=== PATIENT | male | born 1940 | race Caucasian/White ===

== ENCOUNTER 2017-05-31 17:48 | Inpatient (IN) ==
[2017-05-31 18:31] LABS: Basophils % 0.7 %; Eosinophils % 2.2 %; Hematocrit 32.5 % (37.5-50.1); Hemoglobin 10.7 g/dL (12.9-16.9); Mean Corpuscular HGB Conc 32.9 g/dL (31.6-35.5); Nucleated Red Blood Cells 0.5 /100 WBC (0)
[2017-05-31 18:33] LABS: Basophils # 0.1 K/mcL (0.0-0.2); Eosinophils # 0.2 K/mcL (0.0-0.6); Immature Granulocytes % 4.8 % (0-4); Immature Platelets 8.6 % (1.1-6.1); Lymphocytes # 0.9 K/mcL (0.6-4.6); Lymphocytes % 12.3 %; Mean Corpuscular Hemoglobin 33.1 pg (28.0-33.3); Mean Corpuscular Volume 100.6 fL (83.0-100.0); Mean Platelet Volume 10.8 fL (9.4-12.4); Monocytes # 0.6 K/mcL (0.0-1.3); Monocytes % 8.7 %; Neutrophils # 5.2 K/mcL (1.6-8.9); Red Blood Count 3.23 M/mcL (4.19-5.50); Red Cell Distribution Width 14.4 % (11.5-14.5); Segmented Neutrophils % 71.3 %
--- NOTE | 2017-05-31 18:42 | Emergency Department Note ---
Disposition Clinical Impression: Community acquired pneumonia, Failure of outpatient treatment Disposition: Home, Self-Care Condition: Fair General Adult HPI - General Chief complaint: ED Shortness of Breath/Dyspnea Stated complaint: GEE Time Seen by Provider: 05/31/17 18:36 Source: patient Limitations: no limitations - History of Present Illness Pain Scale: 0 - Related Data Home Medications Medication Instructions Recorded Confirmed Abiraterone Acetate [Zytiga] 1,000 mg PO DAILY 05/31/17 05/31/17 Albuterol Sulfate [Ventolin Hfa] 2 puff IH Q4H PRN 05/31/17 05/31/17 Carvedilol [Coreg] 6.25 mg PO DAILY 05/31/17 05/31/17 levoFLOXacin [Levofloxacin] 500 mg PO DAILY 05/31/17 05/31/17 predniSONE [PredniSONE] 40 mg PO DAILY 05/31/17 05/31/17 Allergies Allergy/AdvReac Type Severity Reaction Status Date / Time Penicillins Allergy See Verified 09/03/15 20:22 Comments Past Medical History - Past Medical History Medical history: Reports: cancer, hypertension, valvular heart disease Psychiatric history: Reports: no psych history - Social History Smoking Status: Former smoker Smokeless Tobacco Status: No Alcohol use: Reports: none Drug use: Reports: none Physical Exam - General Limitations: no limitations General appearance: alert, in no apparent distress Course Vital Signs Temperature 97.6 F 05/31/17 17:52 Pulse Rate 98 05/31/17 17:52 Respiratory Rate 16 05/31/17 17:52 Blood Pressure 101/74 05/31/17 17:52 O2 Sat by Pulse Oximetry 92 05/31/17 17:52 Temperature 98.1 F 06/01/17 10:33 Pulse Rate 78 06/01/17 10:33 Respiratory Rate 16 06/01/17 10:33 Blood Pressure 107/65 06/01/17 10:33 O2 Sat by Pulse Oximetry 98 06/01/17 10:33 Oxygen Delivery Oxygen Delivery Nasal Cannula Medical Decision Making - Lab Data Result diagrams: 06/01/17 05:54 06/01/17 05:54 Lab Results 05/31/17 05/31/17 05/31/17 Range/Units 18:21 18:21 18:21 WBC 7.3 (4.3-11.1) K/mcL RBC 3.23 L (4.19-5.50) M/mcL Hgb 10.7 L (12.9-16.9) g/dL Hct 32.5 L (37.5-50.1) % MCV 100.6 H (83.0-100.0) fL MCH 33.1 (28.0-33.3) pg MCHC 32.9 (31.6-35.5) g/dL RDW 14.4 (11.5-14.5) % Plt Count 58 L (140-400) K/mcL MPV 10.8 (9.4-12.4) fL Immature Gran % 4.8 H (0-4) % Seg Neutrophils % 71.3 % Lymphocytes % 12.3 % Monocytes % 8.7 % Eosinophils % 2.2 % Basophils % 0.7 % Neutrophils # 5.2 (1.6-8.9) K/mcL Lymphocytes # 0.9 (0.6-4.6) K/mcL Monocytes # 0.6 (0.0-1.3) K/mcL Eosinophils # 0.2 (0.0-0.6) K/mcL Basophils # 0.1 (0.0-0.2) K/mcL Nucleated RBCs/100 WBC 0.5 H (0) /100 WBC Platelet Estimate Marked Decrease L (Normal) Immature Plt Fraction 8.6 H (1.1-6.1) % Sodium 140 (136-145) mEq/L Potassium 3.8 (3.5-4.5) mEq/L Chloride 109 (98-109) mEq/L Carbon Dioxide 17 L (19-29) mEq/L BUN 23 (8-26) mg/dL Creatinine 0.82 (0.72-1.25) mg/dL Est GFR ( Amer) > 60 (> 60) Est GFR (Non-Af Amer) > 60 (> 60) BUN/Creatinine Ratio 28 H (6-26) Glucose 133 H (70-99) mg/dL Calculated Osmolality 296 (280-300) Lactic Acid 3.4 H (0.5-2.2) mmol/L Calcium 8.7 (8.6-10.8) mg/dL Phosphorus (2.3-4.7) mg/dL Magnesium (1.6-2.6) mg/dL Troponin I (0-0.03) ng/mL B-Natriuretic Peptide (0-100) pg/mL Urine Color (Yellow) Urine Clarity (Clear) Urine pH (5.0-8.0) pH Units Ur Specific [place] (1.010-1.025) Urine Protein (Neg-Trace) mg/dL Urine Glucose (UA) (Normal) mg/dL Urine Ketones (Negative) mg/dL Urine Blood (Negative) Urine Nitrite (Negative) Urine Bilirubin (Negative) Urine Urobilinogen (Normal) mg/dL Ur Leukocyte Esterase (Negative) Urine Microscopic RBC (0-3) per hpf Urine Microscopic WBC (0-3) per hpf Ur Squamous Epith Cells (None-Few) per lpf Urine Bacteria (None-Few) per hpf Hyaline Casts (None-Few) per lpf Ur Culture Indicated? (NO) 05/31/17 05/31/17 05/31/17 Range/Units 18:21 18:21 19:16 WBC (4.3-11.1) K/mcL RBC (4.19-5.50) M/mcL Hgb (12.9-16.9) g/dL Hct (37.5-50.1) % MCV (83.0-100.0) fL MCH (28.0-33.3) pg MCHC (31.6-35.5) g/dL RDW (11.5-14.5) % Plt Count (140-400) K/mcL MPV (9.4-12.4) fL Immature Gran % (0-4) % Seg Neutrophils % % Lymphocytes % % Monocytes % % Eosinophils % % Basophils % % Neutrophils # (1.6-8.9) K/mcL Lymphocytes # (0.6-4.6) K/mcL Monocytes # (0.0-1.3) K/mcL Eosinophils # (0.0-0.6) K/mcL Basophils # (0.0-0.2) K/mcL Nucleated RBCs/100 WBC (0) /100 WBC Platelet Estimate (Normal) Immature Plt Fraction (1.1-6.1) % Sodium (136-145) mEq/L Potassium (3.5-4.5) mEq/L Chloride (98-109) mEq/L Carbon Dioxide (19-29) mEq/L BUN (8-26) mg/dL Creatinine (0.72-1.25) mg/dL Est GFR ( Amer) (> 60) Est GFR (Non-Af Amer) (> 60) BUN/Creatinine Ratio (6-26) Glucose (70-99) mg/dL Calculated Osmolality (280-300) Lactic Acid 3.0 H (0.5-2.2) mmol/L Calcium (8.6-10.8) mg/dL Phosphorus (2.3-4.7) mg/dL Magnesium (1.6-2.6) mg/dL Troponin I 0.04 H* (0-0.03) ng/mL B-Natriuretic Peptide 289 H (0-100) pg/mL Urine Color (Yellow) Urine Clarity (Clear) Urine pH (5.0-8.0) pH Units Ur Specific [place] (1.010-1.025) Urine Protein (Neg-Trace) mg/dL Urine Glucose (UA) (Normal) mg/dL Urine Ketones (Negative) mg/dL Urine Blood (Negative) Urine Nitrite (Negative) Urine Bilirubin (Negative) Urine Urobilinogen (Normal) mg/dL Ur Leukocyte Esterase (Negative) Urine Microscopic RBC (0-3) per hpf Urine Microscopic WBC (0-3) per hpf Ur Squamous Epith Cells (None-Few) per lpf Urine Bacteria (None-Few) per hpf Hyaline Casts (None-Few) per lpf Ur Culture Indicated? (NO) 05/31/17 05/31/17 05/31/17 Range/Units 19:36 19:44 21:32 WBC (4.3-11.1) K/mcL RBC (4.19-5.50) M/mcL Hgb (12.9-16.9) g/dL Hct (37.5-50.1) % MCV (83.0-100.0) fL MCH (28.0-33.3) pg MCHC (31.6-35.5) g/dL RDW (11.5-14.5) % Plt Count (140-400) K/mcL MPV (9.4-12.4) fL Immature Gran % (0-4) % Seg Neutrophils % % Lymphocytes % % Monocytes % % Eosinophils % % Basophils % % Neutrophils # (1.6-8.9) K/mcL Lymphocytes # (0.6-4.6) K/mcL Monocytes # (0.0-1.3) K/mcL Eosinophils # (0.0-0.6) K/mcL Basophils # (0.0-0.2) K/mcL Nucleated RBCs/100 WBC (0) /100 WBC Platelet Estimate (Normal) Immature Plt Fraction (1.1-6.1) % Sodium (136-145) mEq/L Potassium (3.5-4.5) mEq/L Chloride (98-109) mEq/L Carbon Dioxide (19-29) mEq/L BUN (8-26) mg/dL Creatinine (0.72-1.25) mg/dL Est GFR ( Amer) (> 60) Est GFR (Non-Af Amer) (> 60) BUN/Creatinine Ratio (6-26) Glucose (70-99) mg/dL Calculated Osmolality (280-300) Lactic Acid 1.7 (0.5-2.2) mmol/L Calcium (8.6-10.8) mg/dL Phosphorus 1.6 L (2.3-4.7) mg/dL Magnesium 2.2 (1.6-2.6) mg/dL Troponin I (0-0.03) ng/mL B-Natriuretic Peptide (0-100) pg/mL Urine Color Dark Yellow (Yellow) Urine Clarity Clear (Clear) Urine pH 5.5 (5.0-8.0) pH Units Ur Specific [place] 1.029 H (1.010-1.025) Urine Protein 30 H (Neg-Trace) mg/dL Urine Glucose (UA) Normal (Normal) mg/dL Urine Ketones Negative (Negative) mg/dL Urine Blood Trace H (Negative) Urine Nitrite Negative (Negative) Urine Bilirubin Small H (Negative) Urine Urobilinogen Normal (Normal) mg/dL Ur Leukocyte Esterase Negative (Negative) Urine Microscopic RBC 0-3 (0-3) per hpf Urine Microscopic WBC 5-15 H (0-3) per hpf Ur Squamous Epith Cells Moderate H (None-Few) per lpf Urine Bacteria None Seen (None-Few) per hpf Hyaline Casts None Seen (None-Few) per lpf Ur Culture Indicated? NO (NO) Attestation Statement - Attestation Attestation: I examined this patient and my medical decision-making was reviewed with the Resident Physician. I agree with the documented findings, disposition and treatment plan as described except to the extent set forth below. [id number] time provided Patient arrives in the care of family by wheelchair complaining of dyspnea. He conveys subjective concerned that he has pneumonia. No evidence of acute respiratory distress on exam. Patient seen in conjunction with the resident physician
[2017-05-31 18:47] LABS: BUN/Creatinine Ratio 28 (6-26); Blood Urea Nitrogen 23 mg/dL (8-26); Calcium 8.7 mg/dL (8.6-10.8); Carbon Dioxide 17 mEq/L (19-29); Chloride 109 mEq/L (98-109); Glucose 133 mg/dL (70-99); Osmolality,Calculated 296 (280-300); Potassium 3.8 mEq/L (3.5-4.5); Sodium 140 mEq/L (136-145); eGFR For African Americans > 60 (> 60); eGFR For Non-African Americans > 60 (> 60)
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
[2017-05-31] MEDS ORDERED: Levofloxacin 750 MG/150 ML 750 MG/150 ML BAG IVPB ONE (18:56)
[2017-05-31] MEDS ORDERED: 0.9 % Sodium Chloride 1,000 ML IVC ONE (18:56)
[2017-05-31 18:59] LABS: Platelet Count 58 K/mcL (140-400)
[2017-05-31 19:00] LABS: Platelet Estimate Marked Decrease (Normal)
[2017-05-31] MEDS ORDERED: Azithromycin 500 MG in D5% in Water 250 ML IVPB ONE (19:28)
[2017-05-31 19:44] LABS: Bilirubin,Urine Small (Negative); Blood,Urine Trace (Negative); Clarity,Urine Clear (Clear); Color,Urine Dark Yellow (Yellow); Glucose,Urine (UA) Normal (Normal); Ketones,Urine Negative (Negative); Leukocyte Esterase,Urine Negative (Negative); Nitrite,Urine Negative (Negative); PH,Urine 5.5 pH Units (5.0-8.0); Protein,Urine 30 mg/dL (Neg-Trace); Specific Gravity,Urine 1.029 (1.010-1.025); Urobilinogen,Urine Normal (Normal)
[2017-05-31 19:46] LABS: Bacteria,Urine None Seen per hpf (None-Few); Hyaline Casts,Urine None Seen per lpf (None-Few); RBC,Urine 0-3 per hpf (0-3); Squamous Epithelial Cell,Urine Moderate per lpf (None-Few)
[2017-05-31 20:02] LABS: Magnesium 2.2 mg/dL (1.6-2.6); Phosphorous 1.6 mg/dL (2.3-4.7)
[2017-05-31] MEDS ORDERED: cefTRIAXone 1,000 MG in Water for inj. (sterile) 10 ML IVP ONE (23:00)
[2017-06-01] MEDS ORDERED: Ketorolac 30 MG/ML VIAL IVP PRN (02:11)
[2017-06-01] MEDS ORDERED: Ibuprofen 400 MG TABLET PO PRN (02:11)
[2017-06-01] MEDS ORDERED: Ondansetron 4 MG/2 ML VIAL IVP PRN (02:11)
[2017-06-01] MEDS ORDERED: Naloxone 0.4 MG/ML INJ IVP PRN (02:11)
--- NOTE | 2017-06-01 02:19 | Internal Med History&Physical ---
<Zeb Wakefield - Last Filed: 06/01/17 02:32> Date of Encounter: 06/01/17 Time of Encounter: 02:15 Assessment and Plan (1) Acute respiratory failure Current visit: Yes Status: Acute - Secondary to right sided PNA seen on CXR - Failed outpatient levaquin - No previous O2 requirement per patient. - Currently tolerating 2L O2. - Further management as below. Time spent on admission: 40 minutes Qualifiers: Respiratory failure complication: hypoxia Qualified Code(s): J96.01 - Acute respiratory failure with hypoxia (2) Community acquired pneumonia Current visit: Yes Status: Acute - As demonstrated on CXR in ED. - Failed outpatient levaquin per patient, total of 3 doses. - Received 1 dose levaquin, as well as azithromycin and ceftriaxone in ED - Will continue ceftriaxone - No WBC count, does not meet SIRS criteria, lactic acid initially 3.4, down to wnl now. Qualifiers: Laterality: right Lung location: middle lobe of lung Qualified Code(s): J18.1 - Lobar pneumonia, unspecified organism (3) Prostate cancer Current visit: No Status: Chronic - Currently undergoing treatment for prostate cancer - Evidence of osseous metastasis on CXR, likely from prostate - COntinue treatment as outpatient. (4) Failure of outpatient treatment Current visit: Yes Status: Acute - Management as above for CAP (5) DVT prophylaxis Current visit: Yes Status: Acute Heparin 5000 units q12 Internal Medicine - H&P: HPI Chief complaint: SOB Admitted From: Emergency Dept Plans for Post Hospital Care: Home History of present illness: Mr. Torres is a 76 year old male who presents to ED with a complaint of SOB x4 days. He states that he was seen at Urgent Care 4 days ago and received CXR showing right sided PNA and was given levofloxacin. He completed 3 days worth of treatment however he states it did not get any better. He also admits to mild productive cough with thin sputum. He denies any symptoms of fevers, chills , nausea, vomiting, weakness, fatigue, numbness, tingling. SOB present at rest and with exertion. Chest tightness substernally, worse with deep breathing. In ED, VS unremarkable. Labs show mild anemia without white count, elevated lactic acid of 3.4, mild trop of 0.04. CXR consistent with Right sided opacity, likely PNA. BNP elevated in 200s. Past Med Surg Social Fam HX - Past Medical History Medical history: cancer, hypertension, valvular heart disease Psychiatric history: no psych history - Social History Smoking Status: Former smoker Smokeless Tobacco Status: No Alcohol use: none Drug use: none - Family History Mother Adopted: No Living Status: Cause of : Aortic Valve Disease Hx Family Cardiac Disorders: Yes Internal Medicine - H&P: Meds Abiraterone Acetate [Zytiga] 1,000 mg PO DAILY 05/31/17 [History] Albuterol Sulfate [Ventolin Hfa] 2 puff IH Q4H PRN 05/31/17 [History] Carvedilol [Coreg] 6.25 mg PO DAILY 05/31/17 [History] levoFLOXacin [Levofloxacin] 500 mg PO DAILY 05/31/17 [History] predniSONE [PredniSONE] 40 mg PO DAILY 05/31/17 [History] 3 Allergy/AdvReac Type Severity Reaction Status Date / Time Penicillins Allergy See Verified 09/03/15 20:22 Comments All Systems PM: A 10-system review of systems was performed and is negative for pertinent findings except as documented above in the HPI. - Constitutional Constitutional: no anorexia, no chills, no fatigue, no fever(s), no lethargy, no malaise - Cardiovascular Cardiovascular ROS IM: chest pain, dyspnea, dyspnea on exertion, no diaphoresis , no edema, no lightheadedness, no orthopnea, no palpitations - Respiratory Respiratory: cough, dyspnea, dyspnea on exertion, pain on inspiration, pain with cough, no hemoptysis, no wheezing - Gastrointestinal Gastrointestinal: no abdominal pain, no constipation, no diarrhea, no nausea, no vomiting - Genitourinary Genitourinary ROS male: no dysuria - Musculoskeletal Musculoskeletal ROS IM: no muscle weakness - Neurological Neurological ROS: no numbness, no tingling, no weakness - Constitutional Vitals: Temp Pulse Resp BP Pulse Ox 98.0 F 99 18 130/69 95 06/01/17 00:10 06/01/17 00:10 06/01/17 00:10 06/01/17 00:10 06/01/17 00:10 Exam: Gen.: Vitals noted. No acute distress. AAOx3 HEENT: PERRL, oropharynx clear, Normocephalic, atraumatic, MMM Cardiac: RRR, no murmur, +S1/S2. Reproducible chest pain substernally. Pulmonary: equal chest expansion, right middle lobe rales and decreased breath sounds. Abdomen: soft, nontender, BS noted, no guarding MSK: ROM intact, no joint swelling noted Extremities: no BLE edema, nontender calf, no cyanosis or clubbing Neuro: A&Ox3, moves all extremities, no focal deficits Psych: Appropriate mood and behavior Internal Med - H&P Results - Labs CBC & Chem 7: 05/31/17 18:21 05/31/17 18:21 <Tariq Sanchez H - Last Filed: 06/01/17 03:20> Date of Encounter: 06/01/17 Internal Medicine - H&P: HPI History of present illness: Mr. Torres is a 76 year old male All Systems PM: A 10-system review of systems was performed and is negative for pertinent findings except as documented above in the HPI. - Constitutional Vitals: Temp Pulse Resp BP Pulse Ox 98.0 F 99 18 130/69 95 06/01/17 00:10 06/01/17 00:10 06/01/17 00:10 06/01/17 00:10 06/01/17 00:10 Internal Med - H&P Results - Labs CBC & Chem 7: 05/31/17 18:21 05/31/17 18:21 - Attending Attestation Acute hypoxic respiratory failure secondary to community-acquired pneumonia that failed outpatient therapy, unknown agent Continue Rocephin and azithromycin Mild hydration Check for Legionella and Streptococcus antigens and urine, blood cultures, sputum cultures History of aortic valve replacement, and pacemaker Time spent on this admission 40 minutes, the patient will be admitted as inpatient, expected to stay moment to midnights. Full code. I examined this patient and my medical decision-making was reviewed with the Resident Physician. I agree with the documented findings, disposition and treatment plan as described except to the extent set forth below.
[2017-06-01] MEDS ORDERED: 0.9 % Sodium Chloride 1,000 ML IVC SCH (03:30)
[2017-06-01 06:07] LABS: Basophils % 0.6 %; Eosinophils # 0.4 K/mcL (0.0-0.6); Eosinophils % 5.6 %; Hematocrit 28.9 % (37.5-50.1); Hemoglobin 9.6 g/dL (12.9-16.9); Lymphocytes # 0.7 K/mcL (0.6-4.6); Lymphocytes % 10.1 %; Mean Corpuscular HGB Conc 33.2 g/dL (31.6-35.5); Mean Corpuscular Hemoglobin 33.1 pg (28.0-33.3); Mean Corpuscular Volume 99.7 fL (83.0-100.0); Mean Platelet Volume 11.3 fL (9.4-12.4); Monocytes # 0.6 K/mcL (0.0-1.3); Monocytes % 9.1 %; Neutrophils # 4.5 K/mcL (1.6-8.9); Red Cell Distribution Width 14.4 % (11.5-14.5); Segmented Neutrophils % 69.6 %
[2017-06-01 06:09] LABS: Platelet Count 50 K/mcL (140-400)
[2017-06-01 06:19] LABS: BUN/Creatinine Ratio 24 (6-26); Blood Urea Nitrogen 17 mg/dL (8-26); Calcium 7.4 mg/dL (8.6-10.8); Carbon Dioxide 18 mEq/L (19-29); Chloride 111 mEq/L (98-109); Glucose 103 mg/dL (70-99); Osmolality,Calculated 290 (280-300); Potassium 3.9 mEq/L (3.5-4.5); Sodium 139 mEq/L (136-145); eGFR For African Americans > 60 (> 60); eGFR For Non-African Americans > 60 (> 60)
[2017-06-01] MEDS: *HR* Heparin 5,000 UNIT/ML VIAL SQ SCH ×2 (06:25→18:45)
[2017-06-01] MEDS: cefTRIAXone 1,000 MG in Water for inj. (sterile) 10 ML IVP SCH (10:58)
[2017-06-01] MEDS ORDERED: *HR* Morphine 2 MG/ML SYRINGE IVP PRN (18:52)
[2017-06-01] MEDS: Azithromycin 500 MG in D5% in Water 250 ML IVPB SCH (21:43)
--- NOTE | 2017-06-01 22:54 | Internal Med Progress Note ---
Date of Encounter: 06/01/17 Time of Encounter: 14:51 - Assessment and plan (1) Acute respiratory failure Current Visit: Yes Status: Acute Assessment and plan: Secondary to CAP. Currently requiring 3 L O2 and does not need O2 at home. Continue Rocephin, Azithro Wean O2 as tolerated Hold IVF Qualifiers: Respiratory failure complication: hypoxia Qualified Code(s): J96.01 - Acute respiratory failure with hypoxia (2) Community acquired pneumonia Current Visit: Yes Status: Acute Assessment and plan: Management as per problem #1. Qualifiers: Laterality: right Lung location: middle lobe of lung Qualified Code(s): J18.1 - Lobar pneumonia, unspecified organism (3) Failure of outpatient treatment Current Visit: Yes Status: Acute - Subjective Interval history: No acute events. Patient still SOB even walking to bathroom. Denies fevers/ chills, chest pain. - Constitutional Vitals: Temp Pulse Resp BP Pulse Ox 98.2 F 81 16 109/72 94 06/01/17 18:57 06/01/17 18:57 06/01/17 18:57 06/01/17 18:57 06/01/17 18:57 Exam: Gen.: Vitals noted. No acute distress. AAOx3 HEENT: PERRL, oropharynx clear, Normocephalic, atraumatic, MMM Cardiac: RRR, no murmur, +S1/S2. Reproducible chest pain substernally. Pulmonary: equal chest expansion, right middle lobe rales and decreased breath sounds. Abdomen: soft, nontender, BS noted, no guarding MSK: ROM intact, no joint swelling noted Extremities: no BLE edema, nontender calf, no cyanosis or clubbing Neuro: A&Ox3, moves all extremities, no focal deficits Internal Medicine: Result - Labs CBC & Chem 7: 06/01/17 05:54 06/01/17 05:54 Labs: Short CBC 06/01/17 Range/Units 05:54 WBC 6.5 (4.3-11.1) K/mcL Hgb 9.6 L (12.9-16.9) g/dL Hct 28.9 L (37.5-50.1) % Plt Count 50 L (140-400) K/mcL Neutrophils # 4.5 (1.6-8.9) K/mcL BMP 06/01/17 05:54 Sodium 139 Potassium 3.9 Chloride 111 H Carbon Dioxide 18 L BUN 17 Creatinine 0.70 L Glucose 103 H Calcium 7.4 L Consult Discharge Plan - Plan Referrals: Jessica Carpenter, EXPLOSIVES OPERATOR [Primary Care Provider] -
[2017-06-02 05:37] LABS: Basophils % 0.6 %; Mean Corpuscular Volume 100.7 fL (83.0-100.0)
[2017-06-02 05:39] LABS: Eosinophils # 0.5 K/mcL (0.0-0.6); Eosinophils % 6.9 %; Hemoglobin 9.4 g/dL (12.9-16.9); Immature Granulocytes % 4.8 % (0-4); Immature Platelets 7.9 % (1.1-6.1); Lymphocytes # 0.6 K/mcL (0.6-4.6); Lymphocytes % 9.6 %; Mean Corpuscular HGB Conc 32.4 g/dL (31.6-35.5); Mean Corpuscular Hemoglobin 32.6 pg (28.0-33.3); Mean Platelet Volume 11.1 fL (9.4-12.4); Monocytes # 0.5 K/mcL (0.0-1.3); Monocytes % 8.1 %; Neutrophils # 4.7 K/mcL (1.6-8.9); Nucleated Red Blood Cells 0.3 /100 WBC (0); Red Blood Count 2.88 M/mcL (4.19-5.50)
[2017-06-02 05:40] LABS: Platelet Count 57 K/mcL (140-400)
[2017-06-02] MEDS: *HR* Heparin 5,000 UNIT/ML VIAL SQ SCH ×2 (06:02→18:12)
[2017-06-02 06:09] LABS: BUN/Creatinine Ratio 21 (6-26); Blood Urea Nitrogen 13 mg/dL (8-26); Calcium 7.4 mg/dL (8.6-10.8); Carbon Dioxide 18 mEq/L (19-29); Chloride 111 mEq/L (98-109); Glucose 99 mg/dL (70-99); Osmolality,Calculated 282 (280-300); Sodium 136 mEq/L (136-145); eGFR For African Americans > 60 (> 60); eGFR For Non-African Americans > 60 (> 60)
[2017-06-02] MEDS: cefTRIAXone 1,000 MG in Water for inj. (sterile) 10 ML IVP SCH (09:32)
[2017-06-02] MEDS ORDERED: Furosemide 40 MG/4 ML VIAL IVP ONE (17:20)
[2017-06-02] MEDS: Azithromycin 500 MG in D5% in Water 250 ML IVPB SCH (22:45)
[2017-06-03] MEDS: *HR* Heparin 5,000 UNIT/ML VIAL SQ SCH ×2 (05:47→18:10)
[2017-06-03 05:54] LABS: Hemoglobin 9.8 g/dL (12.9-16.9); Mean Corpuscular Volume 99.3 fL (83.0-100.0)
[2017-06-03 05:56] LABS: Basophils % 0.5 %; Eosinophils # 0.3 K/mcL (0.0-0.6); Eosinophils % 5.3 %; Hematocrit 29.4 % (37.5-50.1); Immature Granulocytes % 3.9 % (0-4); Immature Platelets 6.2 % (1.1-6.1); Lymphocytes # 0.5 K/mcL (0.6-4.6); Lymphocytes % 7.4 %; Mean Corpuscular HGB Conc 33.3 g/dL (31.6-35.5); Mean Corpuscular Hemoglobin 33.1 pg (28.0-33.3); Mean Platelet Volume 10.6 fL (9.4-12.4); Monocytes # 0.5 K/mcL (0.0-1.3); Monocytes % 8.2 %; Neutrophils # 4.8 K/mcL (1.6-8.9); Nucleated Red Blood Cells 0.3 /100 WBC (0); Red Blood Count 2.96 M/mcL (4.19-5.50); Red Cell Distribution Width 13.9 % (11.5-14.5); Segmented Neutrophils % 74.7 %
[2017-06-03 06:00] LABS: Platelet Count 63 K/mcL (140-400)
[2017-06-03 06:06] LABS: BUN/Creatinine Ratio 18 (6-26); Blood Urea Nitrogen 12 mg/dL (8-26); Calcium 7.5 mg/dL (8.6-10.8); Carbon Dioxide 21 mEq/L (19-29); Chloride 109 mEq/L (98-109); Glucose 111 mg/dL (70-99); Osmolality,Calculated 286 (280-300); Potassium 3.7 mEq/L (3.5-4.5); Sodium 138 mEq/L (136-145); eGFR For African Americans > 60 (> 60); eGFR For Non-African Americans > 60 (> 60)
[2017-06-03] MEDS: cefTRIAXone 1,000 MG in Water for inj. (sterile) 10 ML IVP SCH (10:00)
[2017-06-03] MEDS ORDERED: Vancomycin 1,250 MG in D5% in Water 250 ML IVPB SCH ×2 (15:00)
[2017-06-03] MEDS: Ipratropium/Albuterol Neb 3 ML IH SCH ×4 (16:25→23:33)
[2017-06-03] MEDS ORDERED: Furosemide 20 MG/2 ML VIAL IVP ONE (17:13)
[2017-06-03] MEDS: Vancomycin 1,250 MG in D5% in Water 250 ML IVPB SCH (18:09)
--- NOTE | 2017-06-03 18:18 | Electrocardiograph Report ---
[address] [address] Test Date: 2017-05-31 Pat Name: Ladarius Torres Department: 104 Room: 3A Gender: M Manager Site: : 1940 Requested By: Tim Sosa Order Number: [id number] Reading MD: Dee Seay Measurements Intervals Blunt Rate: 108 P: ME: 0 QRS: 204 QRSD: 126 T: 158 QT: 359 QTc: 422 Interpretive Statements ELECTRONIC VENTRICULAR PACEMAKER Electronically Signed On 06-03-2017 18:16:28 EST by Dee Seay
[2017-06-03] MEDS: Azithromycin 500 MG in D5% in Water 250 ML IVPB SCH (22:21)
--- NOTE | 2017-06-03 22:25 | Internal Med Progress Note ---
Date of Encounter: 06/03/17 Time of Encounter: 13:03 - Assessment and plan (1) Acute respiratory failure Current Visit: Yes Status: Acute Assessment and plan: Secondary to CAP and likely fluid overload. Currently requiring 3 L O2 and does not need O2 at home. Continue Rocephin, Azithro Wean O2 as tolerated Hold IVF I.S. Head of bed elevated >45 degrees Lasix IV 20 mg x1 and recheck fluid status Qualifiers: Respiratory failure complication: hypoxia Qualified Code(s): J96.01 - Acute respiratory failure with hypoxia (2) Community acquired pneumonia Current Visit: Yes Status: Acute Assessment and plan: Management as per problem #1. Qualifiers: Laterality: right Lung location: middle lobe of lung Qualified Code(s): J18.1 - Lobar pneumonia, unspecified organism (3) Failure of outpatient treatment Current Visit: Yes Status: Acute - Subjective Interval history: No acute events. Patient still SOB even walking to bathroom, same extent as he was prior to admission. Denies fevers/chills, chest pain. - Constitutional Vitals: Temp Pulse Resp BP Pulse Ox 98.3 F 48 18 113/67 93 06/03/17 19:08 06/03/17 19:08 06/03/17 20:08 06/03/17 19:08 06/03/17 20:08 Exam: Gen: displays mild labored breathing CVS: RRR Lungs: course rales throughout, no wheezing Abd; NT, ND, some sacral edema is noted Ext: no edema Internal Medicine: Result - Labs CBC & Chem 7: 06/03/17 05:31 06/03/17 05:31 Labs: Short CBC 06/03/17 Range/Units 05:31 WBC 6.4 (4.3-11.1) K/mcL Hgb 9.8 L (12.9-16.9) g/dL Hct 29.4 L (37.5-50.1) % Plt Count 63 L (140-400) K/mcL Neutrophils # 4.8 (1.6-8.9) K/mcL BMP 06/03/17 05:31 Sodium 138 Potassium 3.7 Chloride 109 Carbon Dioxide 21 BUN 12 Creatinine 0.66 L Glucose 111 H Calcium 7.5 L - Impressions Impressions Chest X-Ray 06/03/17 08:36 IMPRESSION: Patchy airspace opacities bilaterally, right more than left, likely related to pneumonia versus pulmonary edema, stable . Small right pleural effusion. Diffuse sclerotic osseous metastasis, stable D/ / Jamarcus Restrepo MD / Jamarcus Restrepo MD Interpreting Provider: Jamarcus Restrepo MD Consult Discharge Plan - Plan Referrals: Jessica Carpenter, GEOCHEMICAL LABORATORY TECHNICIAN [Primary Care Provider] -
--- NOTE | 2017-06-03 22:31 | Internal Med Progress Note ---
Date of Encounter: 06/03/17 Time of Encounter: 17:29 - Assessment and plan (1) Acute respiratory failure Current Visit: Yes Status: Acute Assessment and plan: Fluid overload vs pneumonia: He requires oxygen here. Failed outpatient treatment with Levaquin, currently on Rocephin and Azithromycin. Will need to broaden therapy to cover for MRSA. Exam with rales and sacral edema (likely from body positioning). Later in afternoon on re-examination, he was eating a hamburger brought in by his son. I informed them now that I suspect fluid overload we must restrict his sodium intake. Activity is low as he gets SOB. PT has evaluated patient on 06/01. - Follow-up cultures: Blood, sputum, legionella ag, streptococcal ag, mycoplasma. Procalcitonin to evaluate if patient infection is adequately treated. - Add vancomycin - ED report stated that patient improved with aerosol treatment. He has no known history of COPD but will try Duo Nebs and monitor. - Echocardiogram - IV Lasix, I/Os, sodium restrict (currently on cardiac diet), elevate head of bed. - Incentive spirometry - increase activity as tolerated with assistance if needed. - Wean O2 as tolerated. Qualifiers: Respiratory failure complication: hypoxia Qualified Code(s): J96.01 - Acute respiratory failure with hypoxia (2) Community acquired pneumonia Current Visit: Yes Status: Acute Assessment and plan: Management as per problem #1. Add vancomycin to cover for mrsa given his failed OP therapy and current respiratory status not improving. Qualifiers: Laterality: right Lung location: middle lobe of lung Qualified Code(s): J18.1 - Lobar pneumonia, unspecified organism (3) Failure of outpatient treatment Current Visit: Yes Status: Acute (4) DVT prophylaxis Current Visit: Yes Status: Acute (5) Prostate cancer Current Visit: No Status: Chronic - Subjective Interval history: Still SOB, required O2 to be increased to 4L NC. Denies fevers/chills, chest pain. - Constitutional Vitals: Temp Pulse Resp BP Pulse Ox 98.3 F 48 18 113/67 93 06/03/17 19:08 06/03/17 19:08 06/03/17 20:08 06/03/17 19:08 06/03/17 20:08 Exam: GEN: NAD, AAOx3 HEENT: MMM, No JVD CVS: RRR Lungs: Rales throughout all lung [place], slightly improved since my exam yesterday. No wheezing. Abdomen: +Sacral edema, NT/ND Ext: no edema, no cyanosis Internal Medicine: Result - Labs CBC & Chem 7: 06/03/17 05:31 06/03/17 05:31 Labs: Short CBC 06/03/17 Range/Units 05:31 WBC 6.4 (4.3-11.1) K/mcL Hgb 9.8 L (12.9-16.9) g/dL Hct 29.4 L (37.5-50.1) % Plt Count 63 L (140-400) K/mcL Neutrophils # 4.8 (1.6-8.9) K/mcL BMP 06/03/17 05:31 Sodium 138 Potassium 3.7 Chloride 109 Carbon Dioxide 21 BUN 12 Creatinine 0.66 L Glucose 111 H Calcium 7.5 L - Impressions Impressions Chest X-Ray 06/03/17 08:36 IMPRESSION: Patchy airspace opacities bilaterally, right more than left, likely related to pneumonia versus pulmonary edema, stable . Small right pleural effusion. Diffuse sclerotic osseous metastasis, stable D/ / Jamarcus Restrepo MD / Jamarcus Restrepo MD Interpreting Provider: Jamarcus Restrepo MD Consult Discharge Plan - Plan Referrals: Jessica Carpenter, GRINDER [employer]AR [Primary Care Provider] -
[2017-06-04] MEDS: Ipratropium/Albuterol Neb 3 ML IH SCH ×5 (04:10→20:39)
[2017-06-04] MEDS: *HR* Heparin 5,000 UNIT/ML VIAL SQ SCH ×2 (05:25→17:07)
[2017-06-04] MEDS: Vancomycin 1,250 MG in D5% in Water 250 ML IVPB SCH ×2 (05:26→17:07)
[2017-06-04 05:31] LABS: Mean Corpuscular Volume 99.3 fL (83.0-100.0)
[2017-06-04 05:32] LABS: Hematocrit 29.4 % (37.5-50.1); Hemoglobin 9.8 g/dL (12.9-16.9); Immature Platelets 7.6 % (1.1-6.1); Mean Corpuscular HGB Conc 33.3 g/dL (31.6-35.5); Mean Corpuscular Hemoglobin 33.1 pg (28.0-33.3); Mean Platelet Volume 10.7 fL (9.4-12.4); Red Blood Count 2.96 M/mcL (4.19-5.50); Segmented Neutrophils % 70.2 %
[2017-06-04 05:33] LABS: Basophils # 0.1 K/mcL (0.0-0.2); Basophils % 0.7 %; Eosinophils # 0.3 K/mcL (0.0-0.6); Immature Granulocytes % 3.7 % (0-4); Lymphocytes # 0.8 K/mcL (0.6-4.6); Lymphocytes % 12.5 %; Monocytes # 0.6 K/mcL (0.0-1.3); Monocytes % 8.9 %; Neutrophils # 4.7 K/mcL (1.6-8.9); Platelet Count 72 K/mcL (140-400)
[2017-06-04 05:45] LABS: BUN/Creatinine Ratio 21 (6-26); Blood Urea Nitrogen 14 mg/dL (8-26); Calcium 7.6 mg/dL (8.6-10.8); Carbon Dioxide 19 mEq/L (19-29); Chloride 107 mEq/L (98-109); Glucose 102 mg/dL (70-99); Osmolality,Calculated 283 (280-300); Potassium 3.7 mEq/L (3.5-4.5); Sodium 136 mEq/L (136-145); eGFR For African Americans > 60 (> 60); eGFR For Non-African Americans > 60 (> 60)
[2017-06-04] MEDS: cefTRIAXone 1,000 MG in Water for inj. (sterile) 10 ML IVP SCH (07:29)
--- NOTE | 2017-06-04 13:41 | Internal Med Progress Note ---
Date of Encounter: 06/04/17 Time of Encounter: 13:41 - Assessment and plan (1) Acute respiratory failure Current Visit: Yes Status: Acute Assessment and plan: Fluid overload vs pneumonia: He requires oxygen here. Failed outpatient treatment with Levaquin, currently on Rocephin and Azithromycin. Will need to broaden therapy to cover for MRSA. Exam with rales and sacral edema (likely from body positioning). Later in afternoon on re-examination, he was eating a hamburger brought in by his son. I informed them now that I suspect fluid overload we must restrict his sodium intake. Activity is low as he gets SOB. PT has evaluated patient on 06/01. - Follow-up cultures: Blood, sputum, legionella ag, streptococcal ag, mycoplasma. Procalcitonin to evaluate if patient infection is adequately treated. - Add vancomycin - ED report stated that patient improved with aerosol treatment. He has no known history of COPD but will try Duo Nebs and monitor. - Echocardiogram - IV Lasix, I/Os, sodium restrict (currently on cardiac diet), elevate head of bed. - Incentive spirometry - increase activity as tolerated with assistance if needed. - Wean O2 as tolerated. Qualifiers: Respiratory failure complication: hypoxia Qualified Code(s): J96.01 - Acute respiratory failure with hypoxia (2) Community acquired pneumonia Current Visit: Yes Status: Acute Assessment and plan: Management as per problem #1. Vancomycin to cover for mrsa given his failed OP therapy and current respiratory status not improving. Qualifiers: Laterality: right Lung location: middle lobe of lung Qualified Code(s): J18.1 - Lobar pneumonia, unspecified organism (3) Failure of outpatient treatment Current Visit: Yes Status: Acute (4) DVT prophylaxis Current Visit: Yes Status: Acute (5) Prostate cancer Current Visit: No Status: Chronic - Subjective Interval history: SWas able to wean 3 L. Denies fevers/chills, chest pain. - Constitutional Vitals: Temp Pulse Resp BP Pulse Ox 97.4 F L 75 16 93/57 93 06/04/17 11:01 06/04/17 11:01 06/04/17 11:01 06/04/17 11:01 06/04/17 08:17 Exam: Gen: NAD, resp distress significantly improved, no accessory muscle usage CVS: RRR Lungs: rales at bases, aeration improved, no wheezing Abd: Sacral edema, soft, nt/nd Ext: no edema Internal Medicine: Result - Labs CBC & Chem 7: 06/05/17 05:42 06/05/17 05:42 Labs: Short CBC 06/04/17 Range/Units 04:33 WBC 6.7 (4.3-11.1) K/mcL Hgb 9.8 L (12.9-16.9) g/dL Hct 29.4 L (37.5-50.1) % Plt Count 72 L (140-400) K/mcL Neutrophils # 4.7 (1.6-8.9) K/mcL BMP 06/04/17 04:33 Sodium 136 Potassium 3.7 Chloride 107 Carbon Dioxide 19 BUN 14 Creatinine 0.66 L Glucose 102 H Calcium 7.6 L Consult Discharge Plan - Plan Referrals: Jessica Carpenter, YESI [Primary Care Provider] - 06/15/17 10:30 am
[2017-06-04] MEDS ORDERED: Furosemide 20 MG/2 ML VIAL IVP ONE (13:42)
[2017-06-04] MEDS: Furosemide 20 MG TABLET PO SCH (17:04)
[2017-06-05] MEDS: Ipratropium/Albuterol Neb 3 ML IH SCH ×7 (00:09→23:03)
[2017-06-05 05:55] LABS: Basophils % 0.7 %; Hemoglobin 9.8 g/dL (12.9-16.9); Mean Platelet Volume 10.8 fL (9.4-12.4); Red Cell Distribution Width 13.9 % (11.5-14.5)
[2017-06-05 05:57] LABS: Eosinophils # 0.4 K/mcL (0.0-0.6); Eosinophils % 6.9 %; Hematocrit 29.8 % (37.5-50.1); Immature Granulocytes % 3.6 % (0-4); Immature Platelets 6.3 % (1.1-6.1); Lymphocytes # 0.5 K/mcL (0.6-4.6); Lymphocytes % 8.2 %; Mean Corpuscular HGB Conc 32.9 g/dL (31.6-35.5); Mean Corpuscular Hemoglobin 32.5 pg (28.0-33.3); Mean Corpuscular Volume 98.7 fL (83.0-100.0); Monocytes # 0.6 K/mcL (0.0-1.3); Monocytes % 9.4 %; Red Blood Count 3.02 M/mcL (4.19-5.50); Segmented Neutrophils % 71.2 %
[2017-06-05 05:58] LABS: Neutrophils # 4.1 K/mcL (1.6-8.9); Platelet Count 82 K/mcL (140-400)
[2017-06-05 06:15] LABS: BUN/Creatinine Ratio 22 (6-26); Blood Urea Nitrogen 15 mg/dL (8-26); Calcium 7.4 mg/dL (8.6-10.8); Carbon Dioxide 21 mEq/L (19-29); Chloride 106 mEq/L (98-109); Glucose 98 mg/dL (70-99); Osmolality,Calculated 285 (280-300); Potassium 3.6 mEq/L (3.5-4.5); Sodium 137 mEq/L (136-145); eGFR For African Americans > 60 (> 60); eGFR For Non-African Americans > 60 (> 60)
[2017-06-05] MEDS: *HR* Heparin 5,000 UNIT/ML VIAL SQ SCH ×2 (06:35→18:11)
[2017-06-05] MEDS: Vancomycin 1,250 MG in D5% in Water 250 ML IVPB SCH ×2 (06:36→18:11)
[2017-06-05] MEDS: cefTRIAXone 1,000 MG in Water for inj. (sterile) 10 ML IVP SCH (07:28)
[2017-06-05] MEDS: Furosemide 20 MG TABLET PO SCH (07:28)
[2017-06-06] MEDS ORDERED: 0.9 % Sodium Chloride 500 ML IVC ONE (00:28)
[2017-06-06] MEDS ORDERED: Aztreonam 1,000 MG in D5% in Water (Mini-Bag+) 100 ML IVPB SCH (00:28)
[2017-06-06] MEDS: Aztreonam 1,000 MG in Water for inj. (sterile) 10 ML IVP SCH ×3 (00:53→16:24)
[2017-06-06] MEDS: Ipratropium/Albuterol Neb 3 ML IH SCH ×5 (03:24→20:44)
[2017-06-06 05:19] LABS: Red Blood Count 2.74 M/mcL (4.19-5.50)
[2017-06-06 05:21] LABS: Basophils % 0.3 %; Eosinophils # 0.4 K/mcL (0.0-0.6); Eosinophils % 6.2 %; Hematocrit 27.1 % (37.5-50.1); Hemoglobin 8.9 g/dL (12.9-16.9); Immature Platelets 6.4 % (1.1-6.1); Lymphocytes # 0.4 K/mcL (0.6-4.6); Lymphocytes % 7.4 %; Mean Corpuscular HGB Conc 32.8 g/dL (31.6-35.5); Mean Corpuscular Hemoglobin 32.5 pg (28.0-33.3); Mean Corpuscular Volume 98.9 fL (83.0-100.0); Mean Platelet Volume 10.8 fL (9.4-12.4); Monocytes # 0.6 K/mcL (0.0-1.3); Monocytes % 10.3 %; Neutrophils # 4.4 K/mcL (1.6-8.9); Nucleated Red Blood Cells 0.3 /100 WBC (0); Red Cell Distribution Width 13.9 % (11.5-14.5); Segmented Neutrophils % 73.8 %
[2017-06-06 05:22] LABS: Platelet Count 84 K/mcL (140-400)
[2017-06-06] MEDS: Vancomycin 1,250 MG in D5% in Water 250 ML IVPB SCH ×2 (05:24→18:44)
[2017-06-06] MEDS: *HR* Heparin 5,000 UNIT/ML VIAL SQ SCH ×2 (05:24→18:44)
[2017-06-06 05:32] LABS: BUN/Creatinine Ratio 19 (6-26); Blood Urea Nitrogen 16 mg/dL (8-26); Calcium 7.6 mg/dL (8.6-10.8); Carbon Dioxide 23 mEq/L (19-29); Chloride 108 mEq/L (98-109); Glucose 105 mg/dL (70-99); Osmolality,Calculated 286 (280-300); Potassium 4.1 mEq/L (3.5-4.5); Sodium 137 mEq/L (136-145); eGFR For African Americans > 60 (> 60); eGFR For Non-African Americans > 60 (> 60)
[2017-06-06] MEDS: cefTRIAXone 1,000 MG in Water for inj. (sterile) 10 ML IVP SCH (08:32)
--- NOTE | 2017-06-06 12:32 | Pulmonology Consult Note ---
Date of Encounter: 06/06/17 Time of Encounter: 11:30 Assessment and Plan (1) Acute respiratory failure Current Visit: Yes Status: Acute Patient has hypoxic respiratory failure secondary to RLL pneumonia with background of severe emphysema agree with broad spectrum antibiotics as patient active prostate cancer , will add IV steroids , will get ABG concern for hypercarbia if there is additional hypercarbic respiratory failure will try NIV initially because of the background of emphysema will start him on BIPAP based on ABG , discussed about the treatment and possible intubation if needed . To transfer to 2N/ICU if there is poor gas exchange. Qualifiers: Respiratory failure complication: hypoxia Qualified Code(s): J96.01 - Acute respiratory failure with hypoxia (2) Pneumonia due to other gram-negative bacteria Current Visit: Yes Status: Acute Because of his background history will suspect gram negative and MRSA pneumonia will cover with broad spectrum antibiotics , will order flutter valve and induced sputum get some sputum samples (3) Diastolic heart failure Current Visit: Yes Status: Acute To continue gentle diuresis as tolerated as his blood pressure is borderline . Qualifiers: Qualified Code(s): I50.33 - Acute on chronic diastolic (congestive) heart failure (4) COPD exacerbation Current Visit: Yes Status: Acute Patient has extensive emphysema in imaging continue bronchodilators and steroids for now. History of Present Illness Consult date: 06/06/17 Reason for consult: dyspnea, hypoxemia, pneumonia, abnormal CXR/CT Chief complaint: Shortness of breadth History of present illness: 76 year old male with past medical history significant for HTN, Heart failure preserved EF of 55% ,Bioprosthetic aortic valve , Undiagnosed COPD and Emphysema as evidenced by imaging , Ca prostrate with sclerotic metastases on radiotherapy and androgen inhibitor therapy comes with few days of shortness of breadth , cough with not much sputum production , he says otherwise he is doing fine before that never knew he had COPD never followed with any sled maker was admitted for hypoxic respiratory failure due to RLL pneumonia and some diastolic heart failure. Patient denies any chest pain or palpitations , denies any other constitutional symptoms , denies any GI or Neuro symptoms .Pulmonary was consulted for evaluation of hypoxic respiratory failure. Past Med Surg Social Fam HX - Past Medical History Medical history: cancer, hypertension, valvular heart disease Psychiatric history: no psych history - Social History Smoking Status: Former smoker Smokeless Tobacco Status: No Alcohol use: none Drug use: none - Family History Mother Adopted: No Living Status: Cause of : Aortic Valve Disease Hx Family Cardiac Disorders: Yes Medications and Allergies Abiraterone Acetate [Zytiga] 1,000 mg PO DAILY 05/31/17 [History] Albuterol Sulfate [Ventolin Hfa] 2 puff IH Q4H PRN 05/31/17 [History] Carvedilol [Coreg] 6.25 mg PO DAILY 05/31/17 [History] levoFLOXacin [Levofloxacin] 500 mg PO DAILY 05/31/17 [History] predniSONE [PredniSONE] 40 mg PO DAILY 05/31/17 [History] 3 Allergy/AdvReac Type Severity Reaction Status Date / Time Penicillins Allergy See Verified 09/03/15 20:22 Comments All Systems: A 10-system review of systems was performed and is negative for pertinent findings except as documented above in the HPI. Physical Examination Vital Signs: Vital Signs, Last 4 Hours Temp Pulse Resp BP Pulse Ox 06/06/17 12:10 97.6 F 75 20 93/60 86 General appearance: other (Mild respiratory distress) Auscultation: bilateral: diminished breath sounds (bilateral basilar air entry is reduced), rales Results - Laboratory Findings CBC and BMP: 06/06/17 05:02 06/06/17 05:02 Abnormal lab findings: Abnormal lab results RBC 2.74 M/mcL (4.19-5.50) L 06/06/17 05:02 Hgb 8.9 g/dL (12.9-16.9) L 06/06/17 05:02 Hct 27.1 % (37.5-50.1) L 06/06/17 05:02 Plt Count 84 K/mcL (140-400) L 06/06/17 05:02 Lymphocytes # 0.4 K/mcL (0.6-4.6) L 06/06/17 05:02 Nucleated RBCs/100 WBC 0.3 /100 WBC (0) H 06/06/17 05:02 Platelet Estimate Marked Decrease (Normal) L 05/31/17 18:21 Immature Plt Fraction 6.4 % (1.1-6.1) H 06/06/17 05:02 Glucose 105 mg/dL (70-99) H 06/06/17 05:02 Calcium 7.6 mg/dL (8.6-10.8) L 06/06/17 05:02 Phosphorus 2.0 mg/dL (2.3-4.7) L 06/03/17 14:46 Troponin I 0.04 ng/mL (0-0.03) H* 05/31/17 18:21 B-Natriuretic Peptide 366 pg/mL (0-100) H 06/05/17 12:40 Ur Specific [place] 1.029 (1.010-1.025) H 05/31/17 19:36 Urine Protein 30 mg/dL (Neg-Trace) H 05/31/17 19:36 Urine Blood Trace (Negative) H 05/31/17 19:36 Urine Bilirubin Small (Negative) H 05/31/17 19:36 Urine Microscopic WBC 5-15 per hpf (0-3) H 05/31/17 19:36 Ur Squamous Epith Cells Moderate per lpf (None-Few) H 05/31/17 19:36 - Microbiology Findings Microbiology Findings: Microbiology, Last 48 Hours 06/03/17 14:53 Blood Culture - Preliminary Peripheral Venipuncture No growth. 06/03/17 14:46 Blood Culture - Preliminary Peripheral Venipuncture No growth. - Clinical Findings Intake & Output: Intake & Output 06/05/17 06/06/17 06/06/17 23:59 07:59 15:59 Intake Total 500 / 500 260 / 260 Output Total 325 / 325 250 / 250 Balance 175 / 175 Weight 80.2 kg Consult Discharge Plan - Plan Referrals: Jessica Carpenter, ASBEST[employer] WORKER HELPER [Primary Care Provider] - 06/15/17 10:30 am
[2017-06-06] MEDS: MethylPREDNISolone 40 MG/ML VIAL IVP SCH ×2 (13:03→16:20)
[2017-06-06 13:51] LABS: ABG Base Excess -3 mEq/L (-2 to 3); ABG HCO3 20 mEq/L (21-27); ABG Oxygen Saturation 93 % (95-98); ABG PCO2 28 mmHg (35-45); ABG PH 7.48 pH Units (7.32-7.45); ABG PO2 60 mmHg (85-104); ABG TCO2 21 mEq/L (20-26)
--- NOTE | 2017-06-06 23:49 | Internal Med Progress Note ---
Date of Encounter: 06/05/17 Time of Encounter: 11:37 - Assessment and plan (1) Acute respiratory failure Current Visit: Yes Status: Acute Assessment and plan: Pneumonia most likely however still not improving. Did note that this has been a gradual process. - Follow-up cultures: - continue antibiotic therapy - DuoNebs - Echocardiogram pending - Wean O2 as tolerated. Qualifiers: Respiratory failure complication: hypoxia Qualified Code(s): J96.01 - Acute respiratory failure with hypoxia (2) Community acquired pneumonia Current Visit: Yes Status: Acute Assessment and plan: Management as per problem #1. Qualifiers: Laterality: right Lung location: middle lobe of lung Qualified Code(s): J18.1 - Lobar pneumonia, unspecified organism (3) Failure of outpatient treatment Current Visit: Yes Status: Acute (4) DVT prophylaxis Current Visit: Yes Status: Acute (5) Prostate cancer Current Visit: No Status: Chronic - Subjective Interval history: SOB persistent. Hesitant to wean O2 - Constitutional Vitals: Temp Pulse Resp BP Pulse Ox 97.6 F 83 18 107/49 91 06/06/17 20:33 06/06/17 20:33 06/06/17 20:49 06/06/17 20:33 06/06/17 20:49 Exam: GEN: NAD, AAOx3 HEENT: MMM, No JVD CVS: RRR Lungs: Rales throughout all lung [place], slightly improved since my exam yesterday. No wheezing. Abdomen: +Sacral edema, NT/ND Ext: no edema, no cyanosis Internal Medicine: Result - Labs CBC & Chem 7: 06/06/17 05:02 06/06/17 05:02 Labs: Short CBC 06/06/17 Range/Units 05:02 WBC 5.9 (4.3-11.1) K/mcL Hgb 8.9 L (12.9-16.9) g/dL Hct 27.1 L (37.5-50.1) % Plt Count 84 L (140-400) K/mcL Neutrophils # 4.4 (1.6-8.9) K/mcL BMP 06/06/17 05:02 Sodium 137 Potassium 4.1 Chloride 108 Carbon Dioxide 23 BUN 16 Creatinine 0.85 Glucose 105 H Calcium 7.6 L - ABG Interpretation ABG results: ABG ABG pH 7.48 pH Units (7.32-7.45) H 06/06/17 13:34 ABG pCO2 28 mmHg (35-45) L 06/06/17 13:34 ABG pO2 60 mmHg (85-104) L 06/06/17 13:34 ABG O2 Saturation 93 % (95-98) L 06/06/17 13:34 - Impressions Impressions Chest CT 06/06/17 11:01 IMPRESSION: Developing multifocal airspace disease in the right hemithorax suspicious for pneumonia. Underlying nodules in this distribution would be difficult to exclude. Small right effusion Increasing sclerotic metastases D/ / Ruddy Yip / Ruddy Yip Interpreting Provider: Ruddy Yip Consult Discharge Plan - Plan Referrals: Jessica Carpenter, STRUCTURAL ENGINEERING TECHNICIAN [Primary Care Provider] - 06/15/17 10:30 am
--- NOTE | 2017-06-06 23:55 | Internal Med Progress Note ---
Date of Encounter: 06/06/17 Time of Encounter: 11:34 - Assessment and plan (1) Acute respiratory failure Current Visit: Yes Status: Acute Qualifiers: Respiratory failure complication: hypoxia Qualified Code(s): J96.01 - Acute respiratory failure with hypoxia (2) Community acquired pneumonia Current Visit: Yes Status: Acute Qualifiers: Laterality: right Lung location: middle lobe of lung Qualified Code(s): J18.1 - Lobar pneumonia, unspecified organism (3) Failure of outpatient treatment Current Visit: Yes Status: Acute (4) DVT prophylaxis Current Visit: Yes Status: Acute (5) Prostate cancer Current Visit: No Status: Chronic - Subjective Interval history: SOB persistent. Hesitant to wean O2 - Constitutional Vitals: Temp Pulse Resp BP Pulse Ox 97.6 F 83 18 107/49 91 06/06/17 20:33 06/06/17 20:33 06/06/17 20:49 06/06/17 20:33 06/06/17 20:49 Internal Medicine: Result - Labs CBC & Chem 7: 06/06/17 05:02 06/06/17 05:02 Labs: Short CBC 06/06/17 Range/Units 05:02 WBC 5.9 (4.3-11.1) K/mcL Hgb 8.9 L (12.9-16.9) g/dL Hct 27.1 L (37.5-50.1) % Plt Count 84 L (140-400) K/mcL Neutrophils # 4.4 (1.6-8.9) K/mcL BMP 06/06/17 05:02 Sodium 137 Potassium 4.1 Chloride 108 Carbon Dioxide 23 BUN 16 Creatinine 0.85 Glucose 105 H Calcium 7.6 L - ABG Interpretation ABG results: ABG ABG pH 7.48 pH Units (7.32-7.45) H 06/06/17 13:34 ABG pCO2 28 mmHg (35-45) L 06/06/17 13:34 ABG pO2 60 mmHg (85-104) L 06/06/17 13:34 ABG O2 Saturation 93 % (95-98) L 06/06/17 13:34 - Impressions Impressions Chest CT 06/06/17 11:01 IMPRESSION: Developing multifocal airspace disease in the right hemithorax suspicious for pneumonia. Underlying nodules in this distribution would be difficult to exclude. Small right effusion Increasing sclerotic metastases D/ / Ruddy Yip / Ruddy Yip Interpreting Provider: Ruddy Yip Consult Discharge Plan - Plan Referrals: Jessica Carpenter, IT SYSTEMS MANAGER [Primary Care Provider] - 06/15/17 10:30 am
[2017-06-07] MEDS: Ipratropium/Albuterol Neb 3 ML IH SCH ×7 (00:09→23:43)
[2017-06-07] MEDS: Aztreonam 1,000 MG in Water for inj. (sterile) 10 ML IVP SCH ×3 (00:44→16:06)
[2017-06-07] MEDS: MethylPREDNISolone 40 MG/ML VIAL IVP SCH ×3 (00:44→16:05)
[2017-06-07 05:36] LABS: Basophils % 0.5 %; Hemoglobin 9.5 g/dL (12.9-16.9); Mean Corpuscular Volume 101.4 fL (83.0-100.0); Red Cell Distribution Width 14.1 % (11.5-14.5); Segmented Neutrophils % 86.1 %
[2017-06-07 05:37] LABS: Eosinophils # 0.1 K/mcL (0.0-0.6); Eosinophils % 1.3 %; Hematocrit 29.5 % (37.5-50.1); Immature Granulocytes % 2.7 % (0-4); Immature Platelets 5.9 % (1.1-6.1); Lymphocytes # 0.4 K/mcL (0.6-4.6); Lymphocytes % 4.9 %; Mean Corpuscular HGB Conc 32.2 g/dL (31.6-35.5); Mean Corpuscular Hemoglobin 32.6 pg (28.0-33.3); Mean Platelet Volume 10.9 fL (9.4-12.4); Monocytes # 0.3 K/mcL (0.0-1.3); Monocytes % 4.5 %; Neutrophils # 6.5 K/mcL (1.6-8.9); Platelet Count 100 K/mcL (140-400); Red Blood Count 2.91 M/mcL (4.19-5.50)
[2017-06-07 05:46] LABS: BUN/Creatinine Ratio 21 (6-26); Blood Urea Nitrogen 18 mg/dL (8-26); Calcium 7.7 mg/dL (8.6-10.8); Carbon Dioxide 20 mEq/L (19-29); Chloride 109 mEq/L (98-109); Glucose 134 mg/dL (70-99); Osmolality,Calculated 288 (280-300); Potassium 4.3 mEq/L (3.5-4.5); Sodium 137 mEq/L (136-145); eGFR For African Americans > 60 (> 60); eGFR For Non-African Americans > 60 (> 60)
[2017-06-07] MEDS: Vancomycin 1,250 MG in D5% in Water 250 ML IVPB SCH (06:03)
[2017-06-07] MEDS: *HR* Heparin 5,000 UNIT/ML VIAL SQ SCH ×2 (06:16→16:05)
--- NOTE | 2017-06-07 09:15 | Pulmonology Progress Note ---
Date of Encounter: 06/07/17 Time of Encounter: 09:13 Assessment and Plan (1) Acute respiratory failure Current Visit: Yes Status: Acute This is secondary to pneumonia with COPD exacerbation continued to wean FiO2 to keep saturation around 89-92%. He will need evaluated for home-going oxygen at the time discharge was walking oxygen study. Recommend continued incentive spirometry and out of bed to chair and ambulation as tolerated under monitored setting with formal PTOT evaluation Qualifiers: Respiratory failure complication: hypoxia Qualified Code(s): J96.01 - Acute respiratory failure with hypoxia (2) Community acquired pneumonia Current Visit: Yes Status: Acute Continue antibiotics with planned to de-escalate vancomycin and a history of culture negative. He will need to complete 7 day therapy from the time of admission. He will need outpatient follow-up CT scan in 4-6 weeks at the time of discharge Qualifiers: Laterality: right Lung location: middle lobe of lung Qualified Code(s): J18.1 - Lobar pneumonia, unspecified organism (3) Diastolic heart failure Current Visit: Yes Status: Acute Recommend that negative volume status blood pressure control heart rate control per medicine service Qualifiers: Qualified Code(s): I50.33 - Acute on chronic diastolic (congestive) heart failure (4) COPD exacerbation Current Visit: Yes Status: Acute Transitioned to oral redness on 40 mg to complete two-week taper agree with bronchodilators patient should be discharged with a long acting muscarinic antagonist such as Spiriva 18 g he will need outpatient pulmonary follow-up PFTs at that time Pulmonary will sign off thank you for longspur to spend care of this patient please call with any questions Subjective Principal diagnosis: PNA Interval history: Patient states he generally feels much better than his admission. Breathing is less difficult his been using the Acapella but feels like it is not doing anything for him. Is currently on 3 L with oxygen saturation in the low to mid 90s. Objective PUL Vital signs: Last Vital Signs Temp 98.1 F 06/07/17 07:25 Pulse 81 06/07/17 07:25 Resp 16 06/07/17 08:33 BP 103/61 06/07/17 07:25 Pulse Ox 92 06/07/17 08:33 General appearance: no acute distress Auscultation: bilateral: clear Cardiovascular: regular rate and rhythm Gastrointestinal: normoactive bowel sounds Extremities: no edema Results - Laboratory Findings CBC and BMP: 06/07/17 05:04 06/07/17 05:04 ABG ABG pH 7.48 pH Units (7.32-7.45) H 06/06/17 13:34 ABG pCO2 28 mmHg (35-45) L 06/06/17 13:34 ABG pO2 60 mmHg (85-104) L 06/06/17 13:34 ABG O2 Saturation 93 % (95-98) L 06/06/17 13:34 Abnormal lab findings: Abnormal lab results RBC 2.91 M/mcL (4.19-5.50) L 06/07/17 05:04 Hgb 9.5 g/dL (12.9-16.9) L 06/07/17 05:04 Hct 29.5 % (37.5-50.1) L 06/07/17 05:04 MCV 101.4 fL (83.0-100.0) H 06/07/17 05:04 Plt Count 100 K/mcL (140-400) L 06/07/17 05:04 Lymphocytes # 0.4 K/mcL (0.6-4.6) L 06/07/17 05:04 Nucleated RBCs/100 WBC 0.3 /100 WBC (0) H 06/06/17 05:02 Platelet Estimate Marked Decrease (Normal) L 05/31/17 18:21 ABG pH 7.48 pH Units (7.32-7.45) H 06/06/17 13:34 ABG pCO2 28 mmHg (35-45) L 06/06/17 13:34 ABG pO2 60 mmHg (85-104) L 06/06/17 13:34 ABG HCO3 20 mEq/L (21-27) L 06/06/17 13:34 ABG O2 Saturation 93 % (95-98) L 06/06/17 13:34 ABG Base Excess -3 mEq/L (-2 to 3) L 06/06/17 13:34 Glucose 134 mg/dL (70-99) H 06/07/17 05:04 Calcium 7.7 mg/dL (8.6-10.8) L 06/07/17 05:04 Phosphorus 2.0 mg/dL (2.3-4.7) L 06/03/17 14:46 Troponin I 0.04 ng/mL (0-0.03) H* 05/31/17 18:21 B-Natriuretic Peptide 366 pg/mL (0-100) H 06/05/17 12:40 Ur Specific [place] 1.029 (1.010-1.025) H 05/31/17 19:36 Urine Protein 30 mg/dL (Neg-Trace) H 05/31/17 19:36 Urine Blood Trace (Negative) H 05/31/17 19:36 Urine Bilirubin Small (Negative) H 05/31/17 19:36 Urine Microscopic WBC 5-15 per hpf (0-3) H 05/31/17 19:36 Ur Squamous Epith Cells Moderate per lpf (None-Few) H 05/31/17 19:36 Vancomycin Trough 32.9 mcg/mL (10-20) H* 06/07/17 05:04 - Microbiology Findings Microbiology Findings: Microbiology, Last 48 Hours 06/06/17 16:00 Sputum Culture - Preliminary Sputum 06/03/17 14:53 Blood Culture - Preliminary Peripheral Venipuncture No growth. 06/03/17 14:46 Blood Culture - Preliminary Peripheral Venipuncture No growth. - Clinical Findings Intake & Output: Intake & Output 06/06/17 06/07/17 06/07/17 23:59 07:59 15:59 Intake Total 0 / 0 Output Total 425 / 425 250 / 250 Balance -415 / -415 -250 / -250 Consult Discharge Plan - Plan Referrals: Jessica Carpenter, MANAGER EMPLOYEE RELATIONS [Primary Care Provider] - 06/15/17 10:30 am
[2017-06-07 09:45] LABS: Mycoplasma pneumoniae IgG 0.19 U/L (<=0.09)
[2017-06-08] MEDS: Aztreonam 1,000 MG in Water for inj. (sterile) 10 ML IVP SCH ×2 (00:01→09:09)
[2017-06-08] MEDS: MethylPREDNISolone 40 MG/ML VIAL IVP SCH ×2 (00:08→09:08)
[2017-06-08] MEDS: Ipratropium/Albuterol Neb 3 ML IH SCH ×5 (04:22→19:56)
--- NOTE | 2017-06-08 05:36 | Internal Med Progress Note ---
Date of Encounter: 06/07/17 Time of Encounter: 16:34 - Assessment and plan (1) Acute respiratory failure Current Visit: Yes Status: Acute Assessment and plan: Patient evaluated by Pulmonology service after respiratory failure persisted despite antibiotic treatment and diuresis. For home: - Have home O2 evaluation so patient can be discharged home with O2 - Repeat CT chest in 4-6 weeks - Prednisone 40 mg two week taper - Spiriva 18 ug - Complete 7 days of antibiotic therapy. - Follow-up as outpatient with Pulmonology. - Can discontinue Lasix unless he is fluid overloaded. Qualifiers: Respiratory failure complication: hypoxia Qualified Code(s): J96.01 - Acute respiratory failure with hypoxia (2) Community acquired pneumonia Current Visit: Yes Status: Acute Assessment and plan: Management as per problem #1. Qualifiers: Laterality: right Lung location: middle lobe of lung Qualified Code(s): J18.1 - Lobar pneumonia, unspecified organism (3) Failure of outpatient treatment Current Visit: Yes Status: Acute (4) DVT prophylaxis Current Visit: Yes Status: Acute (5) Prostate cancer Current Visit: No Status: Chronic Assessment and plan: Metastatic - Subjective Interval history: Patient feeling better. Still has labored breathing but states he feels great. Cannot get supplemental O2 less than 3 L. Denies fevers/chills. He states he has walked down the halls. - Constitutional Vitals: Temp Pulse Resp BP Pulse Ox 97.7 F 88 14 98/67 91 06/08/17 03:20 06/08/17 03:20 06/08/17 03:20 06/08/17 03:20 06/08/17 03:20 Exam: GEN: NAD, AAOx3 HEENT: MMM, No JVD CVS: RRR Lungs: Rales throughout all lung [place], slightly improved since my exam yesterday. No wheezing. Abdomen: +Sacral edema, NT/ND Ext: no edema, no cyanosis Internal Medicine: Result - Labs CBC & Chem 7: 06/07/17 05:04 06/07/17 05:04 Labs: Short CBC 06/07/17 Range/Units 05:04 WBC 7.5 (4.3-11.1) K/mcL Hgb 9.5 L (12.9-16.9) g/dL Hct 29.5 L (37.5-50.1) % Plt Count 100 L (140-400) K/mcL Neutrophils # 6.5 (1.6-8.9) K/mcL BMP 06/07/17 05:04 Sodium 137 Potassium 4.3 Chloride 109 Carbon Dioxide 20 BUN 18 Creatinine 0.84 Glucose 134 H Calcium 7.7 L - ABG Interpretation ABG results: ABG ABG pH 7.48 pH Units (7.32-7.45) H 06/06/17 13:34 ABG pCO2 28 mmHg (35-45) L 06/06/17 13:34 ABG pO2 60 mmHg (85-104) L 06/06/17 13:34 ABG O2 Saturation 93 % (95-98) L 06/06/17 13:34 Consult Discharge Plan - Plan Referrals: Jessica Carpenter CNP [Primary Care Provider] - 06/15/17 10:30 am
[2017-06-08] MEDS: *HR* Heparin 5,000 UNIT/ML VIAL SQ SCH ×2 (06:27→16:54)
[2017-06-08 07:34] LABS: Basophils % 0.5 %; Eosinophils % 0.4 %; Hematocrit 28.7 % (37.5-50.1); Hemoglobin 9.5 g/dL (12.9-16.9); Immature Granulocytes % 3.6 % (0-4); Lymphocytes # 0.6 K/mcL (0.6-4.6); Mean Corpuscular HGB Conc 33.1 g/dL (31.6-35.5); Mean Corpuscular Hemoglobin 32.9 pg (28.0-33.3); Mean Corpuscular Volume 99.3 fL (83.0-100.0); Mean Platelet Volume 10.5 fL (9.4-12.4); Monocytes # 0.5 K/mcL (0.0-1.3); Monocytes % 6.3 %; Neutrophils # 6.4 K/mcL (1.6-8.9); Nucleated Red Blood Cells 0.3 /100 WBC (0); Platelet Count 117 K/mcL (140-400); Red Blood Count 2.89 M/mcL (4.19-5.50); Red Cell Distribution Width 14.2 % (11.5-14.5); Segmented Neutrophils % 82.2 %
[2017-06-08 07:40] LABS: BUN/Creatinine Ratio 27 (6-26); Blood Urea Nitrogen 22 mg/dL (8-26); Carbon Dioxide 20 mEq/L (19-29); Chloride 108 mEq/L (98-109); Glucose 118 mg/dL (70-99); Osmolality,Calculated 288 (280-300); Potassium 4.6 mEq/L (3.5-4.5); Sodium 137 mEq/L (136-145); eGFR For African Americans > 60 (> 60); eGFR For Non-African Americans > 60 (> 60)
[2017-06-08] MEDS ORDERED: Aminoglycoside Consult 1 EACH MC ONE (08:13)
[2017-06-08] MEDS ORDERED: levoFLOXacin 750 MG TABLET PO ONE (09:09)
--- NOTE | 2017-06-08 13:48 | Discharge Summary ---
Date of Encounter: 06/08/17 Time of Encounter: 09:40 - Discharge Diagnosis (1) Acute respiratory failure Priority: Primary Status: Resolved Qualifiers: Respiratory failure complication: hypoxia Qualified Code(s): J96.01 - Acute respiratory failure with hypoxia (2) Community acquired pneumonia Priority: Secondary Status: Acute Qualifiers: Laterality: right Lung location: middle lobe of lung Qualified Code(s): J18.1 - Lobar pneumonia, unspecified organism (3) COPD exacerbation Priority: Secondary Status: Acute (4) DVT prophylaxis Priority: Secondary Status: Acute (5) Failure of outpatient treatment Priority: Secondary Status: Acute (6) Prostate cancer Priority: Secondary Status: Chronic - Discharge Medications Prescriptions: predniSONE [PredniSONE] 10 mg PO DAILY 12 Days tablet Tiotropium [Spiriva] 18 mcg IH 0700 #30 capsule Home Medications: Abiraterone Acetate [Zytiga] 1,000 mg PO DAILY 05/31/17 [History] Albuterol Sulfate [Ventolin Hfa] 2 puff IH Q4H PRN 05/31/17 [History] Tiotropium [Spiriva] 18 mcg IH 0700 #30 capsule 06/08/17 [Rx] predniSONE [PredniSONE] 10 mg PO DAILY 12 Days tablet 06/08/17 [Rx] Allergies/Adverse Reactions: 3 Allergy/AdvReac Type Severity Reaction Status Date / Time Penicillins Allergy See Verified 09/03/15 20:22 Comments Procedures/tests Complete & Pending: Procedures Performed prior 72 hours Category Date Time Status CT chest w/o contrast [CT chest wo con] [CT] Stat Cat Scan 06/06/17 11:01 Completed Date of admission: 06/01/17 03:21 Primary care physician: Jessica Carpenter CNP Consults: 06/06/17 11:45 Consult to Pulmonology [CONS] Routine Consulting Provider: Pulm [facility] Sleep Bonnie Reason for Consult: worsening kay Time Notified: 11:45 Call Completed: Yes 06/08/17 11:23 Consult to Medical Collections Specialist [CONS] Stat Reason for SW Consult: Pt qualified for home O2, needs set up. Discharging clinician: Elodia Perez Anticipated date of discharge: 06/09/17 - Patient Status Disposition: Home, Self-Care Condition: Good Functional capacity at discharge: independent ambulation Overall status at discharge: patient is progressing back to baseline - Ambulatory Orders Ambulatory Orders: CT chest wo con [CT] Time Frame: 4 Weeks, Facility: [facility], Location: Radiology - Discharge Instructions Instructions: Acute Respiratory Distress Syndrome (DC), Pneumonia (DC) Follow Up With: Jessica Carpenter CNP [Primary Care Provider] - 06/15/17 10:30 am Hermilo Bowers MD [Partnered Physician] - 07/06/17 3:00 pm - Diet and Activity Activity: increase activity as tolerated, wear oxygen at all times Diet: low fat, low cholesterol, low salt diet Hospital course: Mr. Torres is a 76 year old male patient with a history of prostate cancer came to the ER with complaints of shortness of breath. He had been treated for pneumonia as outpatient but his symptoms continued to get worse. He had taken antibiotics for 3 days prior to presentation to the ER. On arrival to the ER, he was found to be hypoxic and was admitted for acute respiratory failure and pneumonia. He was started on treatment with IV antibiotics. He had an elevated lactic acid which responded to IV hydration. Chest x-ray showed right sided pneumonia. Patient's condition slowly improved but he remained hypoxic. Pulmonology was consulted for further recommendations. Per their evaluation, patient was diagnosed with COPD exacerbation and was started on treatment with steroids and bronchodilators. His symptoms have slowly improved since then. He is still hypoxic both at rest and with ambulation but his able to perform more activities than when he initially presented. He was evaluated for home oxygen was saturating at 87% at rest and in the 70s with ambulation. He has been placed on 3 L O2 supplementation with improvement in his oxygen sats. Chest CT scan done here showed multifocal airspace disease. This is likely due to pneumonia. Pulmonology recommends repeating a chest CT scan in 4-6 weeks. He will follow up with pulmonology after discharge for further management. He has received 7 days of IV antibiotic therapy. No further antibiotics are recommended at this time. Patient will be discharged on a tapering course of steroids in addition to Spiriva to treat his COPD. Patient's blood pressure has been on the lower side here with multiple episodes of hypotension. Patient does take Coreg at home in the morning. This medication is currently being stopped. - Time Spent with Patient Total time spent providing and/or coordinating discharge services: Greater than 30 minutes (40 min) - Constitutional Vitals: Temp Pulse Resp BP Pulse Ox 97.3 F L 89 20 114/73 91 06/08/17 11:27 06/08/17 11:27 06/08/17 11:27 06/08/17 11:27 06/08/17 11:27 General appearance: Present: cooperative, A&O X 3, answers questions appropriately - Neck Neck exam general surgery: Present: supple, trachea midline. Absent: lymphadenopathy - Respiratory Respiratory exam: Present: prolonged expiratory phase. Absent: accessory muscle use, rales, rhonchi, wheezes - Cardiovascular Cardiovascular exam: Present: RRR, +S1, +S2. Absent: diastolic murmur, gallop, rubs, systolic murmur - GI/Abdominal GI/Abdominal exam: Present: normal bowel sounds, soft, no peritoneal signs. Absent: distended, tenderness - Extremities Exam Extremities exam: Present: warm, radial pulses palpable and symmetrical. Absent : calf tenderness, cyanotic, pedal edema - VTE Documentation of Mechanical Device: Graduated compression elastic hosiery
[2017-06-08] MEDS: Furosemide 20 MG TABLET PO SCH (16:58)
[2017-06-09] MEDS: Ipratropium/Albuterol Neb 3 ML IH SCH ×4 (00:01→11:18)
[2017-06-09] MEDS: *HR* Heparin 5,000 UNIT/ML VIAL SQ SCH (05:36)
[2017-06-09 06:45] LABS: Basophils % 0.4 %; Eosinophils # 0.4 K/mcL (0.0-0.6); Eosinophils % 5.4 %; Hematocrit 28.6 % (37.5-50.1); Hemoglobin 9.4 g/dL (12.9-16.9); Immature Granulocytes % 3.9 % (0-4); Lymphocytes # 0.7 K/mcL (0.6-4.6); Mean Corpuscular HGB Conc 32.9 g/dL (31.6-35.5); Mean Corpuscular Hemoglobin 32.6 pg (28.0-33.3); Mean Corpuscular Volume 99.3 fL (83.0-100.0); Mean Platelet Volume 10.7 fL (9.4-12.4); Monocytes # 0.7 K/mcL (0.0-1.3); Monocytes % 10.2 %; Neutrophils # 5.1 K/mcL (1.6-8.9); Nucleated Red Blood Cells 0.7 /100 WBC (0); Platelet Count 109 K/mcL (140-400); Red Blood Count 2.88 M/mcL (4.19-5.50); Red Cell Distribution Width 14.6 % (11.5-14.5); Segmented Neutrophils % 71.1 %
[2017-06-09 07:00] LABS: BUN/Creatinine Ratio 28 (6-26); Blood Urea Nitrogen 24 mg/dL (8-26); Calcium 7.7 mg/dL (8.6-10.8); Carbon Dioxide 21 mEq/L (19-29); Chloride 111 mEq/L (98-109); Glucose 105 mg/dL (70-99); Osmolality,Calculated 294 (280-300); Potassium 3.9 mEq/L (3.5-4.5); Sodium 140 mEq/L (136-145); eGFR For African Americans > 60 (> 60); eGFR For Non-African Americans > 60 (> 60)
[2017-06-09 07:02] VITALS: BP 115/77
[2017-06-09] MEDS ORDERED: predniSONE 20 MG TABLET PO SCH (09:00)
[2017-06-09] MEDS: Furosemide 20 MG TABLET PO SCH (09:27)
[2017-06-09] MEDS ORDERED: FLUARIX QUAD 2017-18 36MOS UP/PF 0.5 ML SYRINGE IM ONE (10:26)
== END 2017-06-09 11:33 | disposition home or self-care (01) | DRG 177 ==
LOC: EMEROO 17:48 → 3ANU 17:48 → SUATTDRO 06-01 03:21
PROVIDERS: ADMIT Internal Medicine; ATTEND Internal Medicine

== ENCOUNTER 2017-06-13 11:59 | Inpatient (IN) ==
[2017-06-13] MEDS ORDERED: Ipratropium/Albuterol Neb 3 ML IH ONE (12:21)
[2017-06-13] MEDS ORDERED: 0.9 % Sodium Chloride 1,000 ML IVC ONE (12:49)
--- NOTE | 2017-06-13 12:49 | Emergency Department Note ---
Disposition Clinical Impression: Respiratory distress, Hypoxia, Hospital acquired PNA, Acute exacerbation of chronic obstructive pulmonary disease (COPD), Elevated troponin Sepsis Qualifiers: Sepsis type: sepsis due to unspecified organism Qualified Code(s): A41.9 - Sepsis, unspecified organism Disposition: Admitted As Inpatient Condition: Fair Time of Disposition: 14:16 General Adult HPI - General Chief complaint: ED Shortness of Breath/Dyspnea Stated complaint: "difficulty in breathing" Time Seen by Provider: 06/13/17 12:04 Source: patient, EMS Mode of arrival: EMS Limitations: no limitations Nursing Notes Reviewed: Yes Vital Signs Reviewed: Yes - History of Present Illness HPI Narrative: 76-year-old male presenting to the emergency department via EMS with chief complaint shortness of breath. Patient was recently discharged from the hospital for pneumonia after failure of outpatient therapy. CT of the chest then showed multifocal atypical pneumonia. He was treated with IV antibiotics in the hospital and discharged with a steroid taper, breathing treatments, oxygen therapy. Patient has never been on oxygen therapy before. He is supposed to be on 3 L at home. Rule out admitted it was noted that he was hypoxic with oxygen saturations dipping into the 70s during exertion. Patient states when he got discharged from the hospital he was feeling fine. He had his oxygen at home and home health aides visiting him. He states then approximately 2 days ago started having increased shortness of breath especially with exertion. He states he is concerned that his oxygen tube is too long and that is why he has been more short of breath recently. He denies any fevers at home. He also denies chest pain, abdominal pain, nausea or vomiting. - Related Data Home Medications Medication Instructions Recorded Confirmed Abiraterone Acetate [Zytiga] 1,000 mg PO DAILY 05/31/17 06/13/17 Albuterol Sulfate [Ventolin Hfa] 2 puff IH Q4H PRN 05/31/17 06/13/17 Carvedilol [Coreg] 6.25 mg PO HS 06/13/17 06/13/17 predniSONE [PredniSONE] 10 mg PO AD 06/13/17 06/13/17 Previous Rx's Medication Instructions Recorded Tiotropium [Spiriva] 18 mcg IH 0700 #30 capsule 06/08/17 Allergies Allergy/AdvReac Type Severity Reaction Status Date / Time Penicillins AdvReac See Verified 06/13/17 13:37 Comments All systems ED: reviewed and negative except as stated. Constitutional: Denies: fever, chills, weakness Eyes: Reports: as per HPI ENT ED: Reports: as per HPI Cardiovascular: Denies: chest pain, palpitations Respiratory: Reports: dyspnea. Denies: cough, wheezes, hemoptysis Gastrointestinal: Denies: abdominal pain, nausea, vomiting Genitourinary: Reports: as per HPI Musculoskeletal: Reports: as per HPI Integumentary: Reports: as per HPI Neurological: Reports: as per HPI Psychiatric: Reports: as per HPI Endocrine: Reports: as per HPI Hematological/Lymphatic: Reports: as per HPI Allergic/Immunologic: Reports: as per HPI Past Medical History - Past Medical History Attestation: Yes The following information was validated with the patient. Medical history: Reports: cancer, hypertension, valvular heart disease Psychiatric history: Reports: no psych history - Social History Smoking Status: Former smoker Smokeless Tobacco Status: No Alcohol use: Reports: none Drug use: Reports: none Physical Exam - General Limitations: no limitations General appearance: alert, in no apparent distress - Head Head exam: atraumatic, normocephalic, normal inspection - Eye Eye exam: Present: normal appearance. Absent: scleral icterus, conjunctival injection - ENT ENT exam: other (Minimal blood noted around the nares) - Chest Chest inspection: Present: normal inspection, symmetric chest wall rise. Absent : tenderness, rash - Respiratory Respiratory exam: Present: other (Decreased breath sounds bilateral posterior inferior). Absent: stridor - Cardiovascular Cardiovascular exam: Present: normal rhythm, tachycardia, normal heart sounds - Abdominal Exam Abdominal exam: Present: soft, Non-Tender. Absent: distention, guarding, rebound - Extremities Exam Extremities exam: Present: normal inspection, full ROM - Neurological Exam Neurological exam: Present: alert, oriented X3 - Psychiatric Psychiatric exam: Present: normal affect, normal mood - Skin Skin exam: Present: warm, intact Course Course Narrative: 76-year-old male presenting to the emergency Department chief complaint of shortness of breath. Patient has increased work of breathing in the room. We will obtain basic lab work including lactic acid and a repeat 2 view chest x- ray. We have placed the patient on 4 L nasal cannula. We will provide him with a DuoNeb treatment. Patient's alert and oriented 3. He is mildly hypoxic with oxygen saturations in the mid 90s. He is mildly tachycardic with heart rate around 105 in the room. Concern for possible healthcare acquired pneumonia at this time. When lab work results will determine use of antibiotics. Patient agrees with this plan. - Reevaluation(s) Reevaluation #1: Patient's lab work and come back with new pneumonia on the chest x-ray. He also has an elevated troponin of 0.07. He also has a lactate elevated at 3.3. We will fluid load the patient with 2 L. We will also provide him with vancomycin, cefepime and Levaquin for healthcare acquired pneumonia. We will provide the patient with aspirin at this time. Elevated ammonia. The patient was previously admitted his troponin was elevated but it was not trended. This is the highest his troponin has been. He denies any chest pain at this time. We will plan to admit the patient at this time. I spoke with the hospitalist on -call Dr. Nash who agrees to accept the patient. I spoke with him about providing the patient with aspirin and no heparin due to the patient having chest pain and he agrees. Patient will be admitted at this time. He is alert and oriented 3 and vital signs are stable. Time: 14:27 Vital Signs Temperature 97.6 F 06/13/17 12:05 Pulse Rate 110 06/13/17 12:05 Respiratory Rate 22 06/13/17 12:05 Blood Pressure 94/71 06/13/17 12:05 O2 Sat by Pulse Oximetry 93 06/13/17 12:05 Temperature 98.2 F 06/13/17 17:00 Pulse Rate 102 06/13/17 17:00 Respiratory Rate 24 06/13/17 17:00 Blood Pressure 102/77 06/13/17 17:00 O2 Sat by Pulse Oximetry 97 06/13/17 17:00 Oxygen Delivery Oxygen Delivery Venti Mask Medical Decision Making - Medical Records Medical records reviewed: Yes I reviewed the patient's medical records. - Lab Data Lab results reviewed: Yes I reviewed the patient's lab results. Result diagrams: 06/13/17 12:52 06/13/17 12:52 Lab Results 06/13/17 06/13/17 06/13/17 Range/Units 12:52 12:52 12:52 WBC 8.8 (4.3-11.1) K/mcL RBC 3.54 L (4.19-5.50) M/mcL Hgb 11.7 L D (12.9-16.9) g/dL Hct 36.1 L (37.5-50.1) % MCV 102.0 H (83.0-100.0) fL MCH 33.1 (28.0-33.3) pg MCHC 32.4 (31.6-35.5) g/dL RDW 14.8 H (11.5-14.5) % Plt Count 48 L D (140-400) K/mcL MPV 10.7 (9.4-12.4) fL Seg Neutrophils % 80.0 % Band Neutrophils % 4.0 (0-4) % Lymphocytes % 12.0 % Monocytes % 4.0 % Neutrophils # 7.4 (1.6-8.9) K/mcL Lymphocytes # 1.1 (0.6-4.6) K/mcL Monocytes # 0.4 (0.0-1.3) K/mcL Nucleated RBCs/100 WBC 1.0 H (0) /100 WBC Platelet Estimate Decreased L (Normal) Immature Plt Fraction 9.8 H (1.1-6.1) % VBG pH (7.32-7.42) pH Units VBG pCO2 (41-51) mmHg VBG pO2 (25-50) mmHg VBG HCO3 (21-27) mEq/L Sodium 142 (136-145) mEq/L Potassium 4.5 (3.5-4.5) mEq/L Chloride 108 (98-109) mEq/L Carbon Dioxide 17 L (19-29) mEq/L BUN 28 H (8-26) mg/dL Creatinine 0.85 (0.72-1.25) mg/dL Est GFR ( Amer) > 60 (> 60) Est GFR (Non-Af Amer) > 60 (> 60) BUN/Creatinine Ratio 33 H (6-26) Glucose 145 H (70-99) mg/dL Calculated Osmolality 302 H (280-300) Lactic Acid (0.5-2.2) mmol/L Calcium 8.1 L (8.6-10.8) mg/dL Troponin I 0.07 H* (0-0.03) ng/mL 06/13/17 06/13/17 Range/Units 12:52 13:00 WBC (4.3-11.1) K/mcL RBC (4.19-5.50) M/mcL Hgb (12.9-16.9) g/dL Hct (37.5-50.1) % MCV (83.0-100.0) fL MCH (28.0-33.3) pg MCHC (31.6-35.5) g/dL RDW (11.5-14.5) % Plt Count (140-400) K/mcL MPV (9.4-12.4) fL Seg Neutrophils % % Band Neutrophils % (0-4) % Lymphocytes % % Monocytes % % Neutrophils # (1.6-8.9) K/mcL Lymphocytes # (0.6-4.6) K/mcL Monocytes # (0.0-1.3) K/mcL Nucleated RBCs/100 WBC (0) /100 WBC Platelet Estimate (Normal) Immature Plt Fraction (1.1-6.1) % VBG pH 7.36 (7.32-7.42) pH Units VBG pCO2 32 L (41-51) mmHg VBG pO2 26 (25-50) mmHg VBG HCO3 19 L (21-27) mEq/L Sodium (136-145) mEq/L Potassium (3.5-4.5) mEq/L Chloride (98-109) mEq/L Carbon Dioxide (19-29) mEq/L BUN (8-26) mg/dL Creatinine (0.72-1.25) mg/dL Est GFR ( Amer) (> 60) Est GFR (Non-Af Amer) (> 60) BUN/Creatinine Ratio (6-26) Glucose (70-99) mg/dL Calculated Osmolality (280-300) Lactic Acid 3.3 H (0.5-2.2) mmol/L Calcium (8.6-10.8) mg/dL Troponin I (0-0.03) ng/mL - Radiology Data Radiology results reviewed: Yes I reviewed the patient's radiology results. Chest X-Ray 06/13/17 12:21 IMPRESSION: Stable pattern of bilateral peripheral airspace disease, asymmetrically greater on the right. This is consistent with pneumonia. Eosinophilic pneumonia is a differential possibility. Right basilar pleural effusion, appears increased in the interval. D/ / Lloyd Luciano MD / Lloyd Luciano MD Interpreting Provider: Lloyd Luciano MD - EKG Data EKG #1 EKG attestation: Yes I reviewed and interpreted this EKG. EKG results narrative: Ventricularly paced rhythm. 110 bpm. QRS 142, QTC 473. No signs of ST segment elevation or acute ischemia. When compared to previous EKG completed on 05/31/2017 no significant changes. Critical Care Time Critical Care Time: Yes Total Critical Care Time: 30 Attestation: The high probability of a clinically significant, sudden or life threatening deterioration of the [respiratory] system(s) required my full and direct attention, intervention and personal management. The aggregate critical care time was [30] minutes. This time is in addition to time spent performing reported procedures but includes the following: [X] Data Review and interpretation [X] Patient assessment and monitoring of vital signs [X] Documentation [X] Medication orders and management Attestation Statement - Attestation Attestation: I examined this patient and my medical decision-making was reviewed with the Resident Physician, Dr. Koehler. I agree with the documented findings, disposition and treatment plan as described except to the extent set forth below. Patient is a 76-year-old white male with a history of recent hospitalization for acute respiratory failure secondary to pneumonia and acute exacerbation of COPD. Patient had been on IV antibiotics and was discharged on steroids and bronchodilators as well as set up for home oxygen which the patient has not required previously. It was noted and there discharged documentation that at time of discharge patient remained hypoxic on room air which worsened significantly with ambulation as well as some persistent mild hypotension. Patient returns by EMS for worsening shortness of breath and respiratory distress. Patient arrives on his subliminal oxygen at 3 L and is hypoxic with conversational dyspnea and tachypnea. Patient denies any form of chest pain pressure or heaviness, no diaphoresis, no nausea or vomiting, no abdominal pain or flank pain. Patient's son arrives he states that since his hospitalization he has been very debilitated, has significant trouble doing his activities of daily living secondary to his increasing shortness of breath and hypoxia with any activity. Son is also requesting social worker school evaluate him for possible placement. I agree with patient's physical exam findings as documented. Patient is tachycardic, hypotensive and hypoxic on arrival to the emergency department. Patient was placed on Ventimask as he was doing a significant amount of mouth breathing. Patient received a breathing treatment on arrival and IV steroids. Patient had blood cultures obtained, blood work drawn, EKG performed, was sent for two-view chest x-ray and IV fluids were initiated due to meeting SIRS criteria. Empiric antibx were initiated for coverage for HCAP. Patient's chest x-ray shows a right infiltrate as well as a small pleural effusion. Patient did receive 2 L of fluid, IV antibiotics, continued supplement oxygen with at this time improvement of his vital signs. Patient will be admitted for recurrent pneumonia with hypoxia and acute exacerbation of COPD. Patient also has an elevated troponin has increased since his troponin during his prior admission. On reevaluation he denies any chest pain pressure or heaviness and there is no acute findings on his EKG. We did administer aspirin and discussed this with the hospitalist at time of admission.
[2017-06-13 13:00] LABS: Hematocrit 36.1 % (37.5-50.1); Immature Platelets 9.8 % (1.1-6.1); Mean Corpuscular HGB Conc 32.4 g/dL (31.6-35.5); Mean Corpuscular Hemoglobin 33.1 pg (28.0-33.3); Mean Platelet Volume 10.7 fL (9.4-12.4); Monocytes # 0.4 K/mcL (0.0-1.3); Red Blood Count 3.54 M/mcL (4.19-5.50); Red Cell Distribution Width 14.8 % (11.5-14.5)
[2017-06-13 13:03] LABS: VBG HCO3 19 mEq/L (21-27); VBG PCO2 32 mmHg (41-51); VBG PH 7.36 pH Units (7.32-7.42); VBG PO2 26 mmHg (25-50)
[2017-06-13 13:11] LABS: BUN/Creatinine Ratio 33 (6-26); Blood Urea Nitrogen 28 mg/dL (8-26); Calcium 8.1 mg/dL (8.6-10.8); Carbon Dioxide 17 mEq/L (19-29); Chloride 108 mEq/L (98-109); Glucose 145 mg/dL (70-99); Osmolality,Calculated 302 (280-300); Potassium 4.5 mEq/L (3.5-4.5); Sodium 142 mEq/L (136-145); eGFR For African Americans > 60 (> 60); eGFR For Non-African Americans > 60 (> 60)
[2017-06-13 13:37] LABS: Hemoglobin 11.7 g/dL (12.9-16.9); Platelet Count 48 K/mcL (140-400)
[2017-06-13 13:42] LABS: Lymphocytes # 1.1 K/mcL (0.6-4.6); Neutrophils # 7.4 K/mcL (1.6-8.9); Platelet Estimate Decreased (Normal)
[2017-06-13] MEDS ORDERED: Levofloxacin 750 MG/150 ML 750 MG/150 ML BAG IVPB ONE (14:02)
[2017-06-13] MEDS ORDERED: Aspirin 325 MG TABLET PO ONE (14:02)
[2017-06-13] MEDS ORDERED: Vancomycin 1,250 MG in D5% in Water 250 ML IVPB ONE (14:02)
[2017-06-13] MEDS ORDERED: Cefepime HCl 2,000 MG in Water for inj. (sterile) 20 ML IVP ONE (14:02)
[2017-06-13] MEDS ORDERED: Ondansetron 4 MG/2 ML VIAL IVP PRN (14:13)
[2017-06-13] MEDS ORDERED: *HR* Promethazine 25 MG/ML VIAL IVP PRN (14:13)
[2017-06-13] MEDS ORDERED: Naloxone 0.4 MG/ML INJ IVP PRN (14:13)
[2017-06-13] MEDS ORDERED: *HR* HYDROcodone/Acet 5/325 mg TABLET PO PRN (14:13)
[2017-06-13] MEDS ORDERED: Acetaminophen 325 MG TABLET PO PRN (14:13)
[2017-06-13] MEDS ORDERED: 0.9 % Sodium Chloride 1,000 ML IVC SCH (14:15)
[2017-06-13] MEDS ORDERED: methylPREDNISolone 125 MG/2 ML VIAL IVP ONE (14:30)
--- NOTE | 2017-06-13 14:52 | Internal Med History&Physical ---
Date of Encounter: 06/13/17 Time of Encounter: 14:47 Assessment and Plan (1) Sepsis Current visit: Yes Status: Acute Pt does meet sepsis cirteria with elevated LA, Tachycardia, Source of inf as PNA will admit the pt into Tele started on broad spec abx Cefepime, Levaquin, Vanco Blood cx drawn in the ER sent for sputum cx Already given 30ml/kg IVF placed him on NS @ 100ml/hr x 1 bag Risk assessment : Pt is high risk for respiraotry compromise and septic shock, need higher level of care Also pt lives by himself, unable to care for himself with above comorbidities.. will consult SW for ECF placement Qualifiers: Sepsis type: sepsis due to unspecified organism Qualified Code(s): A41.9 - Sepsis, unspecified organism (2) Acute and chronic respiratory failure with hypoxia Current visit: Yes Status: Acute due to PNA and Severe COPD exacerbation started on high dose IV steroids Scheduled Duoneb + O2 (3) Acute exacerbation of chronic obstructive pulmonary disease (COPD) Current visit: Yes Status: Acute see above (4) Pneumonia Current visit: Yes Status: Acute sent for sputum cx mostly bacterial PNA concerned for G-ve , Strep and MRSA with recent hospitalization so cont Levaquin , Cefepime, and Vanco abx de escalate abx in next 2 days Qualifiers: Qualified Code(s): J18.9 - Pneumonia, unspecified organism (5) Prostate cancer Current visit: No Status: Chronic f/u as an out pt (6) Elevated troponin Current visit: Yes Status: Acute Mostly due to demand ischemia will trend on troponin no further work needed EKG - no signs of acute ischemia (7) Diastolic heart failure Current visit: No Status: Chronic mild diastolic CHF not in exacerbation gentle fluids only held coreg on last admission due to low BP Qualifiers: Qualified Code(s): I50.33 - Acute on chronic diastolic (congestive) heart failure Internal Medicine - H&P: HPI Chief complaint: Shortness of breath Admitted From: Emergency Dept Plans for Post Hospital Care: Transfer Group Home Facility History of present illness: Mr. 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 As per pt his O2 hose was so long and not working, so unable to get any oxygen. He believes due to O2 NC hose problem his SOB worsened now. Denied any CP. Had CXR done in the ER which showed b/l pneumonia. He is currently on3 lit O2, SPo2 @ 93, however does have diffuse wheezing and mild labored breathing. Past Med Surg Social Fam HX - Past Medical History Medical history: cancer (prostate), COPD, hypertension, valvular heart disease Psychiatric history: no psych history - Social History Smoking Status: Former smoker Smokeless Tobacco Status: No Alcohol use: none Drug use: none - Family History Mother Adopted: No Living Status: Hx Family Cardiac Disorders: Yes Internal Medicine - H&P: Meds Abiraterone Acetate [Zytiga] 1,000 mg PO DAILY 05/31/17 [History] Albuterol Sulfate [Ventolin Hfa] 2 puff IH Q4H PRN 05/31/17 [History] Tiotropium [Spiriva] 18 mcg IH 0700 #30 capsule 06/08/17 [Rx] Carvedilol [Coreg] 6.25 mg PO HS 06/13/17 [History] predniSONE [PredniSONE] 10 mg PO AD 06/13/17 [History] 3 Allergy/AdvReac Type Severity Reaction Status Date / Time Penicillins AdvReac See Verified 06/13/17 13:37 Comments All Systems PM: A 10-system review of systems was performed and is negative for pertinent findings except as documented above in the HPI. Review of systems: Reviewed all the system, everything is benign except the system and symptoms I mentioned in HPI - Constitutional Vitals: Temp Pulse Resp BP Pulse Ox 97.6 F 99 22 97/66 93 06/13/17 12:05 06/13/17 14:09 06/13/17 14:09 06/13/17 14:09 06/13/17 14:09 General appearance: Present: mild distress, A&O X 3, answers questions appropriately - Head Head exam: Present: atraumatic, normal inspection - Neck Neck exam general surgery: Present: supple - Respiratory Respiratory exam: Present: decreased breath sounds, respiratory distress (mild) , wheezes (severe diffuse wheezing b/l). Absent: rales, rhonchi - Cardiovascular Cardiovascular exam: Present: +S1, +S2, tachycardia. Absent: systolic murmur - GI/Abdominal GI/Abdominal exam: Present: normal bowel sounds, soft. Absent: rebound, rigid, tenderness - Extremities Exam Extremities exam: Absent: calf tenderness, pedal edema, tenderness - Back Exam Back exam: Absent: CVA tenderness (L), CVA tenderness (R) - Neurological Exam Neurological exam: Present: alert, oriented X3 - Psychiatric Psychiatric exam: Present: normal affect, normal mood Internal Med - H&P Results - Labs CBC & Chem 7: 06/13/17 12:52 06/13/17 12:52
[2017-06-13] MEDS: Ipratropium/Albuterol Neb 3 ML IH SCH ×3 (16:16→23:37)
[2017-06-13] MEDS: Cefepime HCl 1,000 MG in Water for inj. (sterile) 10 ML IVPB SCH (17:55)
[2017-06-13] MEDS: MethylPREDNISolone 40 MG/ML VIAL IVP SCH (17:55)
[2017-06-14] MEDS: MethylPREDNISolone 40 MG/ML VIAL IVP SCH ×4 (00:08→17:21)
[2017-06-14] MEDS: Vancomycin 1,250 MG in D5% in Water 250 ML IVPB SCH ×2 (02:34→13:29)
[2017-06-14] MEDS: Ipratropium/Albuterol Neb 3 ML IH SCH ×6 (03:48→23:38)
[2017-06-14 03:55] LABS: Mean Corpuscular Volume 101.1 fL (83.0-100.0); Nucleated Red Blood Cells 0.7 /100 WBC (0)
[2017-06-14 03:57] LABS: Hematocrit 26.9 % (37.5-50.1); Hemoglobin 8.7 g/dL (12.9-16.9); Immature Platelets 11.7 % (1.1-6.1); Mean Corpuscular HGB Conc 32.3 g/dL (31.6-35.5); Mean Corpuscular Hemoglobin 32.7 pg (28.0-33.3); Mean Platelet Volume 12.4 fL (9.4-12.4); Red Blood Count 2.66 M/mcL (4.19-5.50); Red Cell Distribution Width 14.7 % (11.5-14.5)
[2017-06-14 04:12] LABS: Platelet Count 34 K/mcL (140-400)
[2017-06-14 04:14] LABS: Alanine Aminotransferase 10 Units/L (0-55); Albumin 2.2 g/dL (3.5-5.0); Albumin/Globulin Ratio 0.6 (1.1-2.2); Alkaline Phosphatase 99 Units/L (38-126); Aspartate Amino Transferase 16 Units/L (5-34); BUN/Creatinine Ratio 32 (6-26); Bilirubin,Total 0.3 mg/dL (0.2-1.2); Blood Urea Nitrogen 24 mg/dL (8-26); Calcium 6.9 mg/dL (8.6-10.8); Carbon Dioxide 18 mEq/L (19-29); Chloride 111 mEq/L (98-109); Globulin 3.4 g/dL (2.4-3.5); Glucose 175 mg/dL (70-99); Magnesium 2.1 mg/dL (1.6-2.6); Osmolality,Calculated 294 (280-300); Potassium 4.5 mEq/L (3.5-4.5); Sodium 138 mEq/L (136-145); Total Protein 5.6 g/dL (6.0-8.3); eGFR For African Americans > 60 (> 60); eGFR For Non-African Americans > 60 (> 60)
[2017-06-14 04:33] LABS: Lymphocytes # 0.9 K/mcL (0.6-4.6); Monocytes # 0.2 K/mcL (0.0-1.3); Neutrophils # 5.8 K/mcL (1.6-8.9)
[2017-06-14 04:34] LABS: Platelet Estimate Decreased (Normal)
[2017-06-14] MEDS: Cefepime HCl 1,000 MG in Water for inj. (sterile) 10 ML IVPB SCH (05:39)
[2017-06-14] MEDS ORDERED: *HR* Enoxaparin 40 MG/0.4 ML SYRINGE SQ SCH (06:00)
[2017-06-14] MEDS ORDERED: Furosemide 20 MG/2 ML VIAL IVP ONE (08:28)
[2017-06-14] MEDS: Levofloxacin 500 MG/100 ML 500 MG/100 ML BAG IVPB SCH (08:39)
--- NOTE | 2017-06-14 13:09 | Electrocardiograph Report ---
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
--- NOTE | 2017-06-14 15:26 | Pulmonology Consult Note ---
<Shan Morrison - Last Filed: 06/14/17 15:57> Date of Encounter: 06/14/17 Time of Encounter: 15:35 History of Present Illness Consult date: 06/14/17 Requesting physician: Gonzalo Nash Reason for consult: pneumonia Chief complaint: SOB History of present illness: Patient is a 76yo male with a PMH of COPD, diastolic CHF, bioprosthetic aortic valve, and prostate cancer with sclerotic metastases on radiotherapy and androgen inhibitor therapy who was recently admitted 06/03/12 and treated for PNA with Azithromycin 4 days, Rocephin 7 days, Vanc 4 days, and Prednisone taper. Patient returned to hospital due to increased SOB and reports non- productive cough. He denies fever, chills, CP, abd pain, increased leg edema, or home O2 requirement. Patient is tachypenic, appears to have significant respiratory distress, and is currently on 5L O2 via NC with SpO2 77%. Respiratory therapist was called to bedside and patient started on BiPap. Anticipate transfer to . Past Med Surg Social Fam HX - Past Medical History Medical history: cancer, hypertension, valvular heart disease Psychiatric history: no psych history - Past Surgical History Surgical History: other (bioprosthetic aortic valve) - Social History Smoking Status: Former smoker Current living situation: Home - Independent Activity Level: Independent ambulation Medications and Allergies Abiraterone Acetate [Zytiga] 1,000 mg PO DAILY 05/31/17 [History] Albuterol Sulfate [Ventolin Hfa] 2 puff IH Q4H PRN 05/31/17 [History] Tiotropium [Spiriva] 18 mcg IH 0700 #30 capsule 06/08/17 [Rx] Carvedilol [Coreg] 6.25 mg PO HS 06/13/17 [History] predniSONE [PredniSONE] 10 mg PO AD 06/13/17 [History] 3 Allergy/AdvReac Type Severity Reaction Status Date / Time Penicillins AdvReac See Verified 06/13/17 13:37 Comments All Systems: A 10-system review of systems was performed and is negative for pertinent findings except as documented above in the HPI. - Constitutional Constitutional: fatigue, no chills, no fever(s), no lethargy, no weakness, no weight gain, no weight loss - EENT Nose, mouth and throat: dry mouth, no epistaxis, no headache(s), no sore throat - Cardiovascular Cardiovascular: palpitations, rapid heart rate, no chest pain - Respiratory Respiratory: cough, dyspnea on exertion, chest congestion, no hemoptysis, no wheezing, no pain on inspirtation, no excessive phlegm production, no change in phlegm color, no pain with cough - Gastrointestinal Gastrointestinal: no diarrhea, no nausea, no vomiting - Genitourinary Genitourinary: no urinary frequency, no urinary urgency - Musculoskeletal Musculoskeletal: weakness, no numbness, no tingling - Neurological Neurological: weakness, no dizziness, no headache(s), no numbness, no tingling - Psychiatric Psychiatric: no anxiety, no depression - Endocrine Endocrine: palpitations, no polydipsia, no polyphagia - Allergic/Immunologic Allergic/Immunologic: wheezing, no tongue swelling, no throat swelling Physical Examination Vital Signs: Vital Signs, Last 4 Hours Temp Pulse Resp BP Pulse Ox 06/14/17 15:24 98.0 F 83 12 96/69 92 General appearance: appears uncomfortable (Patient is tachypenic, appears to have significant respiratory distress, and is currently on 5L O2 via NC with SpO2 77%.) Eyes: nonicteric ENT: oropharynx dry Neck: supple, no JVD Effort: mildly labored Inspection: normal Auscultation: bilateral: rales (R > L) Cardiovascular: irregular rhythm, PVC's noted Gastrointestinal: normoactive bowel sounds, soft, non-distended Integumentary: normal Extremities: no cyanosis, no edema Musculoskeletal: no deformities normal mental status, non-focal exam mood appropriate, affect normal Results - Laboratory Findings CBC and BMP: 06/14/17 03:36 06/14/17 03:36 Abnormal lab findings: Abnormal lab results RBC 2.66 M/mcL (4.19-5.50) L 06/14/17 03:36 Hgb 8.7 g/dL (12.9-16.9) L D 06/14/17 03:36 Hct 26.9 % (37.5-50.1) L 06/14/17 03:36 MCV 101.1 fL (83.0-100.0) H 06/14/17 03:36 RDW 14.7 % (11.5-14.5) H 06/14/17 03:36 Plt Count 34 K/mcL (140-400) L 06/14/17 03:36 Metamyelocytes % 2.0 % (0) H 06/14/17 03:36 Myelocytes % 8.0 % (0) H 06/14/17 03:36 Nucleated RBCs/100 WBC 0.7 /100 WBC (0) H 06/14/17 03:36 Platelet Estimate Decreased (Normal) L 06/14/17 03:36 Immature Plt Fraction 11.7 % (1.1-6.1) H 06/14/17 03:36 VBG pCO2 32 mmHg (41-51) L 06/13/17 13:00 VBG HCO3 19 mEq/L (21-27) L 06/13/17 13:00 Chloride 111 mEq/L (98-109) H 06/14/17 03:36 Carbon Dioxide 18 mEq/L (19-29) L 06/14/17 03:36 BUN/Creatinine Ratio 32 (6-26) H 06/14/17 03:36 Glucose 175 mg/dL (70-99) H 06/14/17 03:36 Calcium 6.9 mg/dL (8.6-10.8) L 06/14/17 03:36 Troponin I 0.06 ng/mL (0-0.03) H* 06/13/17 22:52 B-Natriuretic Peptide 520 pg/mL (0-100) H 06/14/17 03:36 Serum Total Protein 5.6 g/dL (6.0-8.3) L 06/14/17 03:36 Albumin 2.2 g/dL (3.5-5.0) L 06/14/17 03:36 Albumin/Globulin Ratio 0.6 (1.1-2.2) L 06/14/17 03:36 - Diagnostic Findings Chest x-ray: report reviewed, image reviewed CT scan - chest: report reviewed, image reviewed - Clinical Findings Intake & Output: Intake & Output 06/13/17 06/14/17 06/14/17 23:59 07:59 15:59 Intake Total 130 / 130 1770 / 1770 240 / 240 Output Total 0 / 0 250 / 250 200 / 200 Balance 130 / 130 1520 / 1520 40 / 40 Weight 77.8 kg 77.3 kg 77.3 kg Consult Discharge Plan - Plan Referrals: Humberto Salgado MD [Non-Partnered Physician] - 06/29/17 2:40 pm <LesliepeterloganLetha M - Last Filed: 06/14/17 16:28> Date of Encounter: 06/14/17 Assessment and Plan (1) Acute respiratory failure Current Visit: No Status: Acute This patient was seen and examined in the presence of the nurse and also respiratory failure and also resident. Patient in respiratory distress with hypoxic respiratory failure and he is on appropriate treatment of the time, however he is in distress and this is concerning especially with his underlying comorbidities. I have discussed with primary team and respiratory therapist to place him on noninvasive ventilation and transfer him to [facility]. If no improvement patient may need bronchoscopy, however this is an be a risky procedure due to his respiratory status. Explained this to the patient and answered all his questions. Qualifiers: Respiratory failure complication: hypoxia Qualified Code(s): J96.01 - Acute respiratory failure with hypoxia (2) Sepsis Current Visit: Yes Status: Acute Setting is on appropriate antibiotics Qualifiers: Sepsis type: sepsis due to unspecified organism Qualified Code(s): A41.9 - Sepsis, unspecified organism (3) Pneumonia Current Visit: Yes Status: Acute Clinically this is the source of the sepsis and respiratory distress. Patient is on broad-spectrum antibiotics. It is difficult for him to produce sputum and therefore he might need bronchoscopy. He should not to be on liquid diet in case he needs procedure or his condition deteriorate. Thank you very much for the consultation Qualifiers: Qualified Code(s): J18.9 - Pneumonia, unspecified organism Past Med Surg Social Fam HX - Past Medical History Medical history: cancer, hypertension, valvular heart disease Psychiatric history: no psych history - Social History Smoking Status: Former smoker Smokeless Tobacco Status: No Alcohol use: none Drug use: none - Family History Mother Adopted: No Living Status: Hx Family Cardiac Disorders: Yes All Systems: A 10-system review of systems was performed and is negative for pertinent findings except as documented above in the HPI. Physical Examination Vital Signs: Vital Signs, Last 4 Hours Temp Pulse Resp BP Pulse Ox 06/14/17 15:24 98.0 F 83 12 96/69 92 06/14/17 11:41 98.2 F 74 12 101/59 92 06/14/17 11:33 16 94 Results - Laboratory Findings CBC and BMP: 06/14/17 03:36 06/14/17 03:36 Abnormal lab findings: Abnormal lab results RBC 2.66 M/mcL (4.19-5.50) L 06/14/17 03:36 Hgb 8.7 g/dL (12.9-16.9) L D 06/14/17 03:36 Hct 26.9 % (37.5-50.1) L 06/14/17 03:36 MCV 101.1 fL (83.0-100.0) H 06/14/17 03:36 RDW 14.7 % (11.5-14.5) H 06/14/17 03:36 Plt Count 34 K/mcL (140-400) L 06/14/17 03:36 Metamyelocytes % 2.0 % (0) H 06/14/17 03:36 Myelocytes % 8.0 % (0) H 06/14/17 03:36 Nucleated RBCs/100 WBC 0.7 /100 WBC (0) H 06/14/17 03:36 Platelet Estimate Decreased (Normal) L 06/14/17 03:36 Immature Plt Fraction 11.7 % (1.1-6.1) H 06/14/17 03:36 VBG pCO2 32 mmHg (41-51) L 06/13/17 13:00 VBG HCO3 19 mEq/L (21-27) L 06/13/17 13:00 Chloride 111 mEq/L (98-109) H 06/14/17 03:36 Carbon Dioxide 18 mEq/L (19-29) L 06/14/17 03:36 BUN/Creatinine Ratio 32 (6-26) H 06/14/17 03:36 Glucose 175 mg/dL (70-99) H 06/14/17 03:36 Calcium 6.9 mg/dL (8.6-10.8) L 06/14/17 03:36 Troponin I 0.06 ng/mL (0-0.03) H* 06/13/17 22:52 B-Natriuretic Peptide 520 pg/mL (0-100) H 06/14/17 03:36 Serum Total Protein 5.6 g/dL (6.0-8.3) L 06/14/17 03:36 Albumin 2.2 g/dL (3.5-5.0) L 06/14/17 03:36 Albumin/Globulin Ratio 0.6 (1.1-2.2) L 06/14/17 03:36 - Clinical Findings Intake & Output: Intake & Output 06/13/17 06/14/17 06/14/17 23:59 07:59 15:59 Intake Total 130 / 130 1770 / 1770 240 / 240 Output Total 0 / 0 250 / 250 200 / 200 Balance 130 / 130 1520 / 1520 40 / 40 Weight 77.8 kg 77.3 kg 77.3 kg - Attending Attestation I examined this patient and my medical decision-making was reviewed with the Resident Physician. I agree with the documented findings, disposition and treatment plan as described except to the extent set forth below. Assessment and plan was done with my documentation and history of present illness as well as exam and labs was reviewed with the resident.
[2017-06-14] MEDS ORDERED: Furosemide 40 MG/4 ML VIAL IVP ONE (16:03)
[2017-06-14] MEDS: *HR* Morphine 2 MG/ML SYRINGE IVP PRN ×2 (17:20→21:19)
[2017-06-14] MEDS: Cefepime HCl 2,000 MG in Water for inj. (sterile) 20 ML IVP SCH (17:33)
[2017-06-14] MEDS ORDERED: *HR* Metoprolol 5 MG/5 ML VIAL IVP ONE (17:55)
--- NOTE | 2017-06-14 18:01 | Internal Med Progress Note ---
Date of Encounter: 06/14/17 Time of Encounter: 17:59 - Assessment and plan (1) Acute and chronic respiratory failure with hypoxia Current Visit: Yes Status: Acute Assessment and plan: Worsening resp failure Transferred him to consulted Pulmonary Dr. Espitia Continue BiPAP now Reviewed ABG- showing hypoxua, normal PCo2 Cont duoneb PAWAN + High dose iV steroids + broad spec abx ( Cefepime, Vanco, and Levaquin ) Talked to pt and his son about code status. They both requested for full code. As per son, if things get worse he requested intubation, however if his condition deteriorates even on ventilator he wants to consider comfort care Risk assessment: Pt is high risk for resp failure, septic shock..so continue current higher level of care (2) Sepsis Current Visit: Yes Status: Acute Assessment and plan: so far blood cx no growth LA trended down to normal will repeat labs now CBC, CMP, LA unable to give IVF due to Pleural effusions Qualifiers: Sepsis type: sepsis due to unspecified organism Qualified Code(s): A41.9 - Sepsis, unspecified organism (3) Acute exacerbation of chronic obstructive pulmonary disease (COPD) Current Visit: Yes Status: Acute (4) Pneumonia Current Visit: Yes Status: Acute Assessment and plan: bacterial on broad spec abx Qualifiers: Qualified Code(s): J18.9 - Pneumonia, unspecified organism (5) Prostate cancer Current Visit: No Status: Chronic (6) Elevated troponin Current Visit: Yes Status: Acute Assessment and plan: stable around 0.06 demand ischemia with Pneumonia and resp failure no further work up needed (7) Diastolic heart failure Current Visit: No Status: Chronic Assessment and plan: Mild diastolic CHF His Pleural effusions are due to Pneumonia as well as mild CHF exacerbation will give Lasix PRN basis cont close monitoring Qualifiers: Qualified Code(s): I50.33 - Acute on chronic diastolic (congestive) heart failure (8) NSVT (nonsustained ventricular tachycardia) Current Visit: Yes Status: Acute Assessment and plan: He does have on and off few beats of VTACH on monitor probably due to resp failure K + and Mg are WNL cont close monitoring initiated B gaston at low dose Also will get an 2 D Echo will consult cardiology in AM Hoping with BiPAP once his resp function gets better.. His arrhythmias improve - Subjective Interval history: Mr. 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 As per pt his O2 hose was so long and not working, so unable to get any oxygen. He believes due to O2 NC hose problem his SOB worsened now. Denied any CP. Had CXR done in the ER which showed b/l pneumonia. Pt was admitted for acute hypoxic resp failure with worsening pneumonia. He seems to be more labored breathing today. His Oxygen requirement keep going up. Initially he refused to on BiPAP. Gave him 1 dose IV laisx, his symptoms has not improved. So started him on BiPAP now and transferred him to step down unit for close monitoring. - Constitutional Vitals: Temp Pulse Resp BP Pulse Ox 98.3 F 96 42 114/85 95 06/14/17 17:12 06/14/17 17:46 06/14/17 17:46 06/14/17 17:46 06/14/17 17:46 General appearance: Present: A&O X 3, severe distress, answers questions appropriately - Head Head exam: Present: atraumatic, normal inspection - Neck Neck exam general surgery: Present: supple - Respiratory Respiratory exam: Present: decreased breath sounds, rales (++), respiratory distress (severe), rhonchi (++), wheezes (+++), tachypnea - Cardiovascular Cardiovascular exam: Present: +S1, +S2, tachycardia. Absent: systolic murmur - GI/Abdominal GI/Abdominal exam: Present: normal bowel sounds, soft. Absent: rebound, rigid, tenderness - Extremities Exam Extremities exam: Absent: calf tenderness, pedal edema, tenderness - Back Exam Back exam: Absent: CVA tenderness (L), CVA tenderness (R) - Neurological Exam Neurological exam: Present: alert, oriented X3 Internal Medicine: Result - Labs CBC & Chem 7: 06/14/17 03:36 06/14/17 03:36 Labs: Short CBC 06/14/17 Range/Units 03:36 WBC 7.6 (4.3-11.1) K/mcL Hgb 8.7 L D (12.9-16.9) g/dL Hct 26.9 L (37.5-50.1) % Plt Count 34 L (140-400) K/mcL Neutrophils # 5.8 (1.6-8.9) K/mcL BMP 06/14/17 03:36 Sodium 138 Potassium 4.5 Chloride 111 H Carbon Dioxide 18 L BUN 24 Creatinine 0.75 Glucose 175 H Calcium 6.9 L Cardiac Enzymes 06/13/17 Range/Units 22:52 Troponin I 0.06 H* (0-0.03) ng/mL Liver Function 06/14/17 Range/Units 03:36 Total Bilirubin 0.3 (0.2-1.2) mg/dL AST 16 (5-34) Units/L ALT 10 (0-55) Units/L Alkaline Phosphatase 99 (38-126) Units/L Albumin 2.2 L (3.5-5.0) g/dL - Impressions Impressions Chest X-Ray 06/14/17 08:28 IMPRESSION: No significant change in the right lung airspace opacities. D/ / Rafael Forrest MD / Rafael Forrest MD Interpreting Provider: Rafael Forrest MD Consult Discharge Plan - Plan Referrals: Humberto Salgado MD [Non-Partnered Physician] - 06/29/17 2:40 pm
[2017-06-14] MEDS ORDERED: *HR* Metoprolol 5 MG/5 ML VIAL IVP PRN (18:11)
[2017-06-14 18:39] LABS: Hematocrit 28.6 % (37.5-50.1); Hemoglobin 9.3 g/dL (12.9-16.9); Immature Platelets 14.2 % (1.1-6.1); Mean Corpuscular HGB Conc 32.5 g/dL (31.6-35.5); Mean Corpuscular Hemoglobin 33.1 pg (28.0-33.3); Mean Corpuscular Volume 101.8 fL (83.0-100.0); Mean Platelet Volume 12.8 fL (9.4-12.4); Nucleated Red Blood Cells 1.5 /100 WBC (0); Red Blood Count 2.81 M/mcL (4.19-5.50); Red Cell Distribution Width 14.9 % (11.5-14.5)
[2017-06-14 18:42] LABS: Platelet Count 41 K/mcL (140-400)
[2017-06-14 18:43] LABS: BUN/Creatinine Ratio 32 (6-26); Blood Urea Nitrogen 27 mg/dL (8-26); Calcium 7.3 mg/dL (8.6-10.8); Carbon Dioxide 19 mEq/L (19-29); Chloride 109 mEq/L (98-109); Glucose 142 mg/dL (70-99); Magnesium 2.3 mg/dL (1.6-2.6); Osmolality,Calculated 294 (280-300); Potassium 4.6 mEq/L (3.5-4.5); Sodium 138 mEq/L (136-145); eGFR For African Americans > 60 (> 60); eGFR For Non-African Americans > 60 (> 60)
[2017-06-14 19:10] LABS: Lymphocytes # 0.2 K/mcL (0.6-4.6); Monocytes # 0.9 K/mcL (0.0-1.3); Neutrophils # 9.3 K/mcL (1.6-8.9); Platelet Estimate Marked Decrease (Normal)
[2017-06-14 19:13] LABS: Hypochromasia Present (Not Present)
[2017-06-14] MEDS ORDERED: *HR* LORazepam 2 MG/ML VIAL IVP ONE (20:32)
[2017-06-14] MEDS ORDERED: *HR* LORazepam 2 MG/ML VIAL ONE (20:37)
[2017-06-14 21:30] LABS: ABG Base Excess -5 mEq/L (-2 to 3); ABG HCO3 19 mEq/L (21-27); ABG Oxygen Saturation 90 % (95-98); ABG PCO2 31 mmHg (35-45); ABG PO2 58 mmHg (85-104); ABG TCO2 20 mEq/L (20-26)
[2017-06-15] MEDS: *HR* Morphine 2 MG/ML SYRINGE IVP PRN ×2 (00:09→04:32)
[2017-06-15] MEDS: MethylPREDNISolone 40 MG/ML VIAL IVP SCH ×2 (00:09→04:32)
[2017-06-15 01:16] LABS: Hemoglobin 9.1 g/dL (12.9-16.9); Mean Corpuscular Volume 101.1 fL (83.0-100.0)
[2017-06-15 01:17] LABS: BUN/Creatinine Ratio 29 (6-26); Blood Urea Nitrogen 29 mg/dL (8-26); Calcium 7.1 mg/dL (8.6-10.8); Carbon Dioxide 21 mEq/L (19-29); Chloride 108 mEq/L (98-109); Glucose 151 mg/dL (70-99); Magnesium 2.1 mg/dL (1.6-2.6); Osmolality,Calculated 293 (280-300); Potassium 4.1 mEq/L (3.5-4.5); Sodium 137 mEq/L (136-145); eGFR For African Americans > 60 (> 60); eGFR For Non-African Americans > 60 (> 60)
[2017-06-15 01:18] LABS: Hematocrit 27.7 % (37.5-50.1); Immature Platelets 13.3 % (1.1-6.1); Mean Corpuscular HGB Conc 32.9 g/dL (31.6-35.5); Mean Corpuscular Hemoglobin 33.2 pg (28.0-33.3); Mean Platelet Volume 12.1 fL (9.4-12.4); Nucleated Red Blood Cells 1.7 /100 WBC (0); Red Blood Count 2.74 M/mcL (4.19-5.50)
[2017-06-15 01:37] LABS: Platelet Count 37 K/mcL (140-400)
[2017-06-15 02:16] LABS: Lymphocytes # 0.3 K/mcL (0.6-4.6); Monocytes # 0.8 K/mcL (0.0-1.3); Neutrophils # 11.7 K/mcL (1.6-8.9)
[2017-06-15 02:17] LABS: Platelet Estimate Marked Decrease (Normal)
[2017-06-15 02:18] LABS: Hypochromasia Present (Not Present); Polychromasia 1+ (Not Present)
[2017-06-15 02:19] LABS: Hypersegmented Neutrophils Present (Not Present)
[2017-06-15] MEDS: Ipratropium/Albuterol Neb 3 ML IH SCH ×6 (03:46→23:16)
[2017-06-15] MEDS: Cefepime HCl 2,000 MG in Water for inj. (sterile) 20 ML IVP SCH ×2 (04:31→16:36)
--- NOTE | 2017-06-15 08:09 | Internal Med Progress Note ---
<Mack Hill - Last Filed: 06/15/17 08:05> Date of Encounter: 06/15/17 Time of Encounter: 08:05 - Assessment and plan (1) Sepsis Current Visit: Yes Status: Acute Assessment and plan: Patient meets sepsis criteria with elevated WBC count, tachypnea, tachycardia, increase oxygen demand, and pneumonia, left shift noted with band cells on lab work - Lactic acid 2.5, segmented neutrophils 90%, banded neutrophils 2.0 neutrophils # 11.7 - Blood pressure currently stable with lowest blood pressure in the last 24 hours of 94/68 - Blood cultures drawn at admission, results pending Plan: -Patient has been on broad-spectrum antibiotics since admission continue. - Continue to monitor vitals frequently. - Volume status appropriate. - Lactic acid Qualifiers: Sepsis type: sepsis due to unspecified organism Qualified Code(s): A41.9 - Sepsis, unspecified organism (2) Acute exacerbation of chronic obstructive pulmonary disease (COPD) Current Visit: Yes Status: Acute Assessment and plan: Mr. Torres 76-year-old male with known COPD emphysema admitted with acute on chronic respiratory failure, ABG pH is 7.40, PCO2 31, PO2 58, bicarbonate 19. Currently requiring BiPAP at 75% oxygen, demonstrating tachypnea and difficulty breathing. CXR: Demonstrated stable pattern of bilateral peripheral airspace disease, asymmetrical greater on the right, consistent with pneumonia, right basilar pleural effusion. Mr. Torres has demonstrated increased work of breathing, increased oxygen demand and appears in acute respiratory distress, I discussed this patient with Dr. Jean with pulmonary critical care evaluated the patient recommending transfer to the ICU. - With his continual change in status concerns for severe pneumonia such as MRSA or progression to ARDS. Plan: - Transferred to the ICU for increased care needs and worsening of respiratory distress. - Continue BiPAP maintain oxygen saturation greater than 90%. - Continue cefepime and vancomycin, current vancomycin trough 23.6. - Continue duo nebs scheduled, high-dose Solu-Medrol. - Mr. Torres continues to demonstrate progression in his current state he may require intubation. (3) Pneumonia Current Visit: Yes Status: Acute Assessment and plan: As discussed above. Qualifiers: Qualified Code(s): J18.9 - Pneumonia, unspecified organism (4) Pacemaker Current Visit: Yes Status: Acute Assessment and plan: Patient currently 100% ventricular paced. There was note of episodes of occasional V. tach. May require pacemaker evaluation. (5) Prostate cancer Current Visit: No Status: Chronic Assessment and plan: Currently treated for prostate cancer with sclerotic metastases on radiotherapy and androgen inhibitor therapy. (6) Diastolic heart failure Current Visit: No Status: Chronic Assessment and plan: Mild diastolic CHF - BNP 792 - Pleural effusions appreciated on chest x-ray. Plan: - Daily weights, continue to optimize cardiac therapy - Monitor volume status closely while treating for sepsis and pneumonia. Qualifiers: Qualified Code(s): I50.33 - Acute on chronic diastolic (congestive) heart failure (7) NSVT (nonsustained ventricular tachycardia) Current Visit: Yes Status: Acute Assessment and plan: It was noted yesterday he had occasional on and off beats of ventricular tachycardia. - Magnesium 2.1, potassium 4.1, chloride 108, calcium 7.1 - Pacemaker in place - Continue cardiac monitoring - May require cardiac evaluation but episodes are appearing during patient's severe medical status. (8) Macrocytic anemia Current Visit: Yes Status: Acute Assessment and plan: Patient demonstrates hemoglobin 9.1 down from 11.7 with a hematocrit of 27.7 and a MCV of 101.1. Hemoglobin decrease may be secondary to dilutional effect, continue monitoring for signs of blood loss. He is currently undergoing androgen therapy for prostate cancer and acutely ill. - Patient currently ill, obtain iron studies after patient's status is improved - May be secondary to medical health. Plan: - Continue monitoring H&H (9) Thrombocytopenia Current Visit: Yes Status: Acute Assessment and plan: Patient's current platelet count 37 down from 48 at admission. Decrease in the setting of sepsis. Review of patient's previous platelet counts demonstrates chronic thrombocytopenia. Patient undergoing androgen therapy for prostate cancer, current liver status unknown. May have chronic cirrhosis, may be due to his chronic medical problems. Platelet drop in the setting of severe sepsis, no signs of thrombosis, last admission was from 05/31-06/09 which she maintained a platelet count around 100. Low suspicion for heparin-induced thrombocytopenia. - Currently not on DVT prophylaxis given platelet count. Plan: - Continue to monitor platelet counts - May need platelet transfusion - Monitor for signs of bleeding - Subjective Interval history: Mr. Torres 76 yo male has been seen and evaluated patient bedside this morning. He is awake alert and in mild distress. He currently has a BiPAP on demonstrating increased work of breathing and nods his head yes when asked if he is having difficulty with breathing. He follows commands appropriately, and is agreeable to transfer to the ICU for continued care. - Constitutional Vitals: Temp Pulse Resp BP Pulse Ox 98.2 F 94 22 112/79 96 06/15/17 07:11 06/15/17 07:11 06/15/17 07:11 06/15/17 07:11 06/15/17 07:11 General appearance: Present: A&O X 3, severe distress, answers questions appropriately Exam: General: Patient alert, awake, interactive and demonstrating respiratory distress. HEENT: Normocephalic, atraumatic, pupils equal reactive to light, conjunctival hemorrhaging on the medial portion of the patient's right eye, nasal cavity patent and open septum median position, oral mucosa dry, neck supple trachea midline no palpable lymphadenopathy, no thyromegaly. Chest: Symmetric bilateral correlating with respiratory effort, effort labored demonstrating secondary muscle use and tachypnea Cardiac: Tachycardic, no bruits appreciated bilateral carotids, Radial pulses 2 + bilateral, posterior tibial and dorsal pedal pulses 2+ bilateral. Respiratory: Diffuse inspiratory crackles in right inferior and middle lobes clear to auscultation in bilateral apices and left lower lobe Abdomen: Soft, nontender, positive bowel sounds, no palpable masses appreciated on examination Extremities: Symmetric bilateral, bilateral lower extremities without erythema or edema patient moving all 4 extremities spontaneously. Patient has chronic venous stasis changes on his right lower extremity. Neurologic: No focal deficits appreciated on examination. Face symmetric, muscle strength symmetric bilateral upper and lower extremities. Internal Medicine: Result - Labs CBC & Chem 7: 06/15/17 00:58 06/15/17 00:58 Labs: Short CBC 06/14/17 06/15/17 Range/Units 18:20 00:58 WBC 11.1 12.7 H (4.3-11.1) K/mcL Hgb 9.3 L 9.1 L (12.9-16.9) g/dL Hct 28.6 L 27.7 L (37.5-50.1) % Plt Count 41 L 37 L (140-400) K/mcL Neutrophils # 9.3 H 11.7 H (1.6-8.9) K/mcL BMP 06/14/17 06/15/17 18:20 00:58 Sodium 138 137 Potassium 4.6 H 4.1 Chloride 109 108 Carbon Dioxide 19 21 BUN 27 H 29 H Creatinine 0.85 0.99 Glucose 142 H 151 H Calcium 7.3 L 7.1 L - ABG Interpretation ABG results: ABG ABG pH 7.40 pH Units (7.32-7.45) 06/14/17 21:28 ABG pCO2 31 mmHg (35-45) L 06/14/17 21:28 ABG pO2 58 mmHg (85-104) L 06/14/17 21:28 ABG O2 Saturation 90 % (95-98) L 06/14/17 21:28 - Impressions Impressions Chest X-Ray 06/14/17 08:28 IMPRESSION: No significant change in the right lung airspace opacities. D/ / Rafael Forrest MD / Rafael Forrest MD Interpreting Provider: Rafael Forrest MD Consult Discharge Plan - Plan Referrals: Humberto Salgado MD [Non-Partnered Physician] - 06/29/17 2:40 pm <Tamar Levine - Last Filed: 06/15/17 17:48> Date of Encounter: 06/15/17 Time of Encounter: 12:35 - Constitutional Vitals: Temp Pulse Resp BP Pulse Ox 97.0 F L 108 23 67/50 92 06/15/17 17:04 06/15/17 17:04 06/15/17 17:04 06/15/17 17:04 06/15/17 17:04 Internal Medicine: Result - Labs CBC & Chem 7: 06/15/17 00:58 06/15/17 00:58 Labs: Short CBC 06/14/17 06/15/17 Range/Units 18:20 00:58 WBC 11.1 12.7 H (4.3-11.1) K/mcL Hgb 9.3 L 9.1 L (12.9-16.9) g/dL Hct 28.6 L 27.7 L (37.5-50.1) % Plt Count 41 L 37 L (140-400) K/mcL Neutrophils # 9.3 H 11.7 H (1.6-8.9) K/mcL BMP 06/14/17 06/15/17 18:20 00:58 Sodium 138 137 Potassium 4.6 H 4.1 Chloride 109 108 Carbon Dioxide 19 21 BUN 27 H 29 H Creatinine 0.85 0.99 Glucose 142 H 151 H Calcium 7.3 L 7.1 L - ABG Interpretation ABG results: ABG ABG pH 7.31 pH Units (7.32-7.45) L 06/15/17 10:11 ABG pCO2 40 mmHg (35-45) 06/15/17 10:11 ABG pO2 107 mmHg (85-104) H 06/15/17 10:11 ABG O2 Saturation 98 % (95-98) 06/15/17 10:11 - Impressions Impressions Chest X-Ray 06/15/17 08:54 IMPRESSION: Appropriate positioning of lines and tubes. Stable diffuse airspace changes on the right with increasing ground-glass attenuation in the left lower lung zone. D/ / Ross Sage MD / Ross Sage MD Interpreting Provider: Ross Sage MD - Attending Attestation Patient is a 76-year-old male admitted for acute respiratory failure secondary to COPD exacerbation, sepsis secondary to pneumonia. Patient was noted to be in severe respiratory distress, using accessory muscles , decision was made to transfer patient to the ICU. Patient was shortly intubated after transfer to the ICU. Care was transferred to the ICU physician after transfer. Patient was independently seen and examined in the ICU. Case was discussed with the resident physician Mack Hill, I agree with the documented findings, assessment, and plan, except as listed above.
--- NOTE | 2017-06-15 08:42 | Pulmonology Progress Note ---
<SukumargraceJamee ac - Last Filed: 06/15/17 16:51> Date of Encounter: 06/15/17 Time of Encounter: 08:41 Assessment and Plan (1) Acute respiratory failure Current Visit: No Status: Acute Patient with acute respiratory distress requiring endotracheal intubation this morning. -Vent settings and vent bundle -Bronchoscopy performed this afternoon. Follow-up results when they become available. -Continue antibiotic coverage. -Cefepime day 3. -Vancomycin day 3. Qualifiers: Respiratory failure complication: hypoxia Qualified Code(s): J96.01 - Acute respiratory failure with hypoxia (2) Sepsis Current Visit: Yes Status: Acute Continue appropriate antibiotics as above. Qualifiers: Sepsis type: sepsis due to unspecified organism Qualified Code(s): A41.9 - Sepsis, unspecified organism (3) Pneumonia Current Visit: Yes Status: Acute Likely source of sepsis and respiratory distress. -Continue broad-spectrum antibiotic coverage with cefepime, and vancomycin. -Follow-up bronchoscopy. Qualifiers: Qualified Code(s): J18.9 - Pneumonia, unspecified organism (4) Coffee ground emesis Current Visit: Yes Status: Acute Coffee ground emesis seen coming out of the OG tube. -Hold medical DVT prophylaxis. -Protonix IV 40 mg twice a day. -1 unit of platelets as patient is thrombocytopenic at 37. (5) Thrombocytopenia Current Visit: Yes Status: Acute -1 unit of platelets. -Mechanical DVT prophylaxis. (6) DVT prophylaxis Current Visit: No Status: Acute EPCDs Subjective Principal diagnosis: Acute respiratory failure Interval history: Patient presented to the ICU this morning at 9 AM in acute respiratory distress with increased work of breathing. We offered him an anxiolytic and time or endotracheal intubation. The patient requested intubation as he was quite distressed. Patient was successfully intubated. Coffee-ground emesis was seen coming from his OG tube. Patient tolerating the vent well. Objective PUL Vital signs: Last Vital Signs Temp 98.2 F 06/15/17 07:11 Pulse 94 06/15/17 07:11 Resp 22 06/15/17 07:11 BP 112/79 06/15/17 07:11 Pulse Ox 96 06/15/17 07:11 General appearance: other (Patient is currently sedated on the ventilator) Eyes: nonicteric, injected ENT: oropharynx moist Effort: other (On the vent.) Auscultation: bilateral: diminished breath sounds, rales Cardiovascular: regular rate and rhythm Gastrointestinal: normoactive bowel sounds, soft, non-tender, non-distended Integumentary: normal Extremities: no cyanosis, no edema Musculoskeletal: no deformities normal mental status, non-focal exam Ventilator Settings Ventilator Settings: Ventilator Settings Ventilator Mode VC+ Ventilator Mode VC+ Ventilator Tidal Volume 500 Setting Ventilator Tidal Volume 500 Setting Ventilator Tidal Volume 500 Setting Ventilator Tidal Volume 500 Setting Exhaled Tidal Volume 518 Exhaled Tidal Volume 528 Exhaled Tidal Volume 472 Exhaled Tidal Volume 473 Exhaled Tidal Volume 503 Exhaled Tidal Volume 521 Exhaled Tidal Volume 570 Ventilator Respiratory Rate 14 Setting Ventilator Respiratory Rate 14 Setting Ventilator Respiratory Rate 14 Setting Ventilator Respiratory Rate 14 Setting Actual Respiratory Rate 18 Actual Respiratory Rate 35 Actual Respiratory Rate 21 Actual Respiratory Rate 23 Actual Respiratory Rate 24 Actual Respiratory Rate 23 Actual Respiratory Rate 20 Positive End Expiratory 5 Pressure Positive End Expiratory 5 Pressure Positive End Expiratory 5 Pressure Positive End Expiratory 5 Pressure Positive End Expiratory 5 Pressure Positive End Expiratory 5 Pressure Positive End Expiratory 5 Pressure Positive End Expiratory 5 Pressure Peak Inspiratory Airway 19 Pressure Peak Inspiratory Airway 26 Pressure Peak Inspiratory Airway 14 Pressure Peak Inspiratory Airway 21 Pressure Peak Inspiratory Airway 23 Pressure Peak Inspiratory Airway 22 Pressure Peak Inspiratory Airway 28 Pressure Mean Airway Pressure 13 Results - Laboratory Findings CBC and BMP: 06/15/17 00:58 06/15/17 00:58 ABG ABG pH 7.40 pH Units (7.32-7.45) 06/14/17 21:28 ABG pCO2 31 mmHg (35-45) L 06/14/17 21:28 ABG pO2 58 mmHg (85-104) L 06/14/17 21:28 ABG O2 Saturation 90 % (95-98) L 06/14/17 21:28 Abnormal lab findings: Abnormal lab results WBC 12.7 K/mcL (4.3-11.1) H 06/15/17 00:58 RBC 2.74 M/mcL (4.19-5.50) L 06/15/17 00:58 Hgb 9.1 g/dL (12.9-16.9) L 06/15/17 00:58 Hct 27.7 % (37.5-50.1) L 06/15/17 00:58 MCV 101.1 fL (83.0-100.0) H 06/15/17 00:58 RDW 15.0 % (11.5-14.5) H 06/15/17 00:58 Plt Count 37 K/mcL (140-400) L 06/15/17 00:58 Metamyelocytes % 2.0 % (0) H 06/14/17 18:20 Myelocytes % 4.0 % (0) H 06/14/17 18:20 Neutrophils # 11.7 K/mcL (1.6-8.9) H 06/15/17 00:58 Lymphocytes # 0.3 K/mcL (0.6-4.6) L 06/15/17 00:58 Nucleated RBCs/100 WBC 1.7 /100 WBC (0) H 06/15/17 00:58 Hypersegmented Neuts Present (Not Present) A 06/15/17 00:58 Platelet Estimate Marked Decrease (Normal) L 06/15/17 00:58 Immature Plt Fraction 13.3 % (1.1-6.1) H 06/15/17 00:58 Polychromasia 1+ (Not Present) A 06/15/17 00:58 Hypochromasia Present (Not Present) A 06/15/17 00:58 ABG pCO2 31 mmHg (35-45) L 06/14/17 21:28 ABG pO2 58 mmHg (85-104) L 06/14/17 21:28 ABG HCO3 19 mEq/L (21-27) L 06/14/17 21:28 ABG O2 Saturation 90 % (95-98) L 06/14/17 21:28 ABG Base Excess -5 mEq/L (-2 to 3) L 06/14/17 21:28 VBG pCO2 32 mmHg (41-51) L 06/13/17 13:00 VBG HCO3 19 mEq/L (21-27) L 06/13/17 13:00 BUN 29 mg/dL (8-26) H 06/15/17 00:58 BUN/Creatinine Ratio 29 (6-26) H 06/15/17 00:58 Glucose 151 mg/dL (70-99) H 06/15/17 00:58 POC Glucose 151 (58-89) H 06/15/17 08:27 Lactic Acid 2.5 mmol/L (0.5-2.2) H 06/14/17 18:20 Calcium 7.1 mg/dL (8.6-10.8) L 06/15/17 00:58 Troponin I 0.06 ng/mL (0-0.03) H* 06/13/17 22:52 B-Natriuretic Peptide 792 pg/mL (0-100) H 06/15/17 00:58 Serum Total Protein 5.6 g/dL (6.0-8.3) L 06/14/17 03:36 Albumin 2.2 g/dL (3.5-5.0) L 06/14/17 03:36 Albumin/Globulin Ratio 0.6 (1.1-2.2) L 06/14/17 03:36 Vancomycin Trough 23.6 mcg/mL (10-20) H* 06/15/17 00:58 - Clinical Findings Intake & Output: Intake & Output 06/14/17 06/15/17 06/15/17 23:59 07:59 15:59 Intake Total Output Total 400 / 400 Balance -380 / -380 Weight 79.4 kg Consult Discharge Plan - Plan Referrals: Salgado,Humberto Downey MD [Non-Partnered Physician] - 06/29/17 2:40 pm <Letha Leonardo - Last Filed: 06/15/17 17:17> Date of Encounter: 06/15/17 Assessment and Plan (1) Acute respiratory failure Current Visit: No Status: Acute Qualifiers: Respiratory failure complication: hypoxia Qualified Code(s): J96.01 - Acute respiratory failure with hypoxia (2) Sepsis Current Visit: Yes Status: Acute Qualifiers: Sepsis type: sepsis due to unspecified organism Qualified Code(s): A41.9 - Sepsis, unspecified organism (3) Pneumonia Current Visit: Yes Status: Acute Qualifiers: Qualified Code(s): J18.9 - Pneumonia, unspecified organism Objective PUL Vital signs: Last Vital Signs Temp 97.0 F L 06/15/17 17:04 Pulse 108 06/15/17 17:04 Resp 23 06/15/17 17:04 BP 67/50 06/15/17 17:04 Pulse Ox 92 06/15/17 17:04 Ventilator Settings Ventilator Settings: Ventilator Settings, Last 8 Hours Ventilator Mode VC+ Ventilator Mode VC+ Ventilator Mode VC+ Ventilator Tidal Volume 500 Setting Ventilator Tidal Volume 500 Setting Ventilator Tidal Volume 500 Setting Ventilator Tidal Volume 500 Setting Ventilator Respiratory Rate 14 Setting Ventilator Respiratory Rate 14 Setting Ventilator Respiratory Rate 14 Setting Ventilator Respiratory Rate 14 Setting Actual Respiratory Rate 22 Actual Respiratory Rate 23 Actual Respiratory Rate 18 Actual Respiratory Rate 22 Actual Respiratory Rate 35 Actual Respiratory Rate 21 Actual Respiratory Rate 25 Actual Respiratory Rate 23 Actual Respiratory Rate 24 Positive End Expiratory 5 Pressure Positive End Expiratory 5 Pressure Positive End Expiratory 5 Pressure Positive End Expiratory 5 Pressure Positive End Expiratory 5 Pressure Positive End Expiratory 5 Pressure Positive End Expiratory 5 Pressure Positive End Expiratory 5 Pressure Positive End Expiratory 5 Pressure Positive End Expiratory 5 Pressure Peak Inspiratory Airway 12 Pressure Peak Inspiratory Airway 13 Pressure Peak Inspiratory Airway 19 Pressure Peak Inspiratory Airway 12 Pressure Peak Inspiratory Airway 26 Pressure Peak Inspiratory Airway 14 Pressure Peak Inspiratory Airway 24 Pressure Peak Inspiratory Airway 21 Pressure Peak Inspiratory Airway 23 Pressure Results - Laboratory Findings CBC and BMP: 06/15/17 00:58 06/15/17 00:58 ABG ABG pH 7.31 pH Units (7.32-7.45) L 06/15/17 10:11 ABG pCO2 40 mmHg (35-45) 06/15/17 10:11 ABG pO2 107 mmHg (85-104) H 06/15/17 10:11 ABG O2 Saturation 98 % (95-98) 06/15/17 10:11 Abnormal lab findings: Abnormal lab results WBC 12.7 K/mcL (4.3-11.1) H 06/15/17 00:58 RBC 2.74 M/mcL (4.19-5.50) L 06/15/17 00:58 Hgb 9.1 g/dL (12.9-16.9) L 06/15/17 00:58 Hct 27.7 % (37.5-50.1) L 06/15/17 00:58 MCV 101.1 fL (83.0-100.0) H 06/15/17 00:58 RDW 15.0 % (11.5-14.5) H 06/15/17 00:58 Plt Count 37 K/mcL (140-400) L 06/15/17 00:58 Metamyelocytes % 2.0 % (0) H 06/14/17 18:20 Myelocytes % 4.0 % (0) H 06/14/17 18:20 Neutrophils # 11.7 K/mcL (1.6-8.9) H 06/15/17 00:58 Lymphocytes # 0.3 K/mcL (0.6-4.6) L 06/15/17 00:58 Nucleated RBCs/100 WBC 1.7 /100 WBC (0) H 06/15/17 00:58 Hypersegmented Neuts Present (Not Present) A 06/15/17 00:58 Platelet Estimate Marked Decrease (Normal) L 06/15/17 00:58 Immature Plt Fraction 13.3 % (1.1-6.1) H 06/15/17 00:58 Polychromasia 1+ (Not Present) A 06/15/17 00:58 Hypochromasia Present (Not Present) A 06/15/17 00:58 ABG pH 7.31 pH Units (7.32-7.45) L 06/15/17 10:11 ABG pO2 107 mmHg (85-104) H 06/15/17 10:11 ABG HCO3 20 mEq/L (21-27) L 06/15/17 10:11 ABG Base Excess -6 mEq/L (-2 to 3) L 06/15/17 10:11 VBG pCO2 32 mmHg (41-51) L 06/13/17 13:00 VBG HCO3 19 mEq/L (21-27) L 06/13/17 13:00 BUN 29 mg/dL (8-26) H 06/15/17 00:58 BUN/Creatinine Ratio 29 (6-26) H 06/15/17 00:58 Glucose 151 mg/dL (70-99) H 06/15/17 00:58 POC Glucose 154 (58-89) H 06/15/17 11:20 Lactic Acid 2.5 mmol/L (0.5-2.2) H 06/14/17 18:20 Calcium 7.1 mg/dL (8.6-10.8) L 06/15/17 00:58 Troponin I 0.06 ng/mL (0-0.03) H* 06/13/17 22:52 B-Natriuretic Peptide 792 pg/mL (0-100) H 06/15/17 00:58 Serum Total Protein 5.6 g/dL (6.0-8.3) L 06/14/17 03:36 Albumin 2.2 g/dL (3.5-5.0) L 06/14/17 03:36 Albumin/Globulin Ratio 0.6 (1.1-2.2) L 06/14/17 03:36 Vancomycin Trough 23.6 mcg/mL (10-20) H* 06/15/17 00:58 - Clinical Findings Intake & Output: Intake & Output 06/15/17 06/15/17 06/15/17 07:59 15:59 23:59 Intake Total 0 / 0 1050 / 1050 0 / 0 Output Total 150 / 150 Balance 0 / 0 900 / 900 0 / 0 Weight 81.6 kg - Attending Attestation I examined this patient and my medical decision-making was reviewed with the Resident Physician. I agree with the documented findings, disposition and treatment plan as described except to the extent set forth below. Patient seen and examined. Labs, radiology, chart personally reviewed. Agree with resident's history and physical, assessment, plan with following comments: ACCESS NURSE: Patient follows commands, Pulmonary: I have evaluated patient when he was in [address] [place] [address] and he was having significant respiratory distress not tolerating noninvasive ventilation and then they transferred him to intensive care unit. I discussed with him mechanical invasive ventilation and patient agreed to have it done. Patient was intubated without immediate complications. Patient still on broad-spectrum antibiotics and due to worsening of his symptoms bronchoscopy was discussed with his son, which was done without complications. Cardiovascular: stable GI: Nutrition per dietary and GI prophylaxis per routine. There is a possibility of GI bleed. Patient will be on Protonix twice a day and correction of his thrombocytopenia. Heme: DVT prophylaxis per routine. Patient has thrombocytopenia which could be multifactorial and he will be on mechanical DVT prophylaxis. Patient will have platelet transfusion. ID: Continue antibiotics and plan to de-escalation Renal; urine out put and renal funtion reviewed Endorcine: blood glucose is monitored Lines: all lines checked and no evidence of infections Skin: skin care to prevent pressure ulcers per nursing routine care I spent 45 min of Critical Care time with this patient. It involved decision making of high complexity to assess, manipulate, and support vital organ system failure and/or to prevent further life threatening deterioration of the patient' s condition. The time involved in the performance of separately reportable procedures was not counted toward critical care time.
[2017-06-15] MEDS ORDERED: 0.9 % Sodium Chloride 1,000 ML ONE (08:57)
[2017-06-15] MEDS ORDERED: FentaNYL (PF) 1,000 MCG in 0.9 % Sodium Chloride 80 ML IVC SCH ×2 (09:15→10:22)
[2017-06-15] MEDS ORDERED: Dexmedetomidine HCl 400 MCG/100 ML MLS IVC SCH ×2 (09:15→10:22)
--- NOTE | 2017-06-15 09:29 | Procedure Note ---
<Jamee Wong H - Last Filed: 06/15/17 09:19> Date of procedure: 06/15/17 Pre-op diagnosis: Acute respiratory failure Post-op diagnosis: same Procedure: 76 yo male transferred to the ICU on 06-15-17 at approximately 0900 in respiratory distress. I was performed an endotracheal intubation with my attending physician Dr. Leonardo present at the bedside. A time out was complete verifying correct patient, procedure, site, positioning, and special equipment. The patient was placed in a flat position. Sedation was obtained using Versed 2mg and 20 mg of propofol. The patient was then ventilated with an ambu bag. A MAC4 blade and video laryngoscopy was then inserted into the oropharynx at which time there was an unobstructed view of the vocal cords. A 7.5 endotracheal tube was then inserted visualized going through the cords. The stylette was removed immediately. Color change was visualized on the CO2 meter, condensation was visualized in the tube, and breath sounds with auscultated bilaterally. The ET tube was placed at 23 cm at the angle of the mouth. Dr. Leonardo was present for the entire procedure. CXR showed appropriate placement of the tube. No pneumothorax visualized. The Patient tolerated the procedure well and there were no complications. Condition: stable Disposition: ICU <Letha Leonardo M - Last Filed: 06/15/17 13:28> Procedure: I examined this patient and my medical decision-making was reviewed with the Resident Physician. I agree with the documented findings, disposition and treatment plan as described except to the extent set forth below. I have personally supervised Dr. Wong intubating Mr. Torres immediate complications
[2017-06-15] MEDS ORDERED: *HR* HYDROcodone/Acet 5/325 mg TABLET PO PRN (10:27)
[2017-06-15] MEDS ORDERED: *HR* Metoprolol 5 MG/5 ML VIAL IVP PRN (10:27)
[2017-06-15] MEDS ORDERED: predniSONE 10 MG TABLET PO SCH (10:27)
[2017-06-15] MEDS ORDERED: *HR* Promethazine 25 MG/ML VIAL IVP PRN (10:27)
[2017-06-15] MEDS ORDERED: Naloxone 0.4 MG/ML INJ IVP PRN (10:27)
[2017-06-15] MEDS ORDERED: Ondansetron 4 MG/2 ML VIAL IVP PRN (10:27)
[2017-06-15] MEDS ORDERED: *HR* Morphine 2 MG/ML SYRINGE IVP PRN (10:27)
[2017-06-15] MEDS ORDERED: Acetaminophen 325 MG TABLET PO PRN (10:27)
[2017-06-15 10:29] LABS: ABG Base Excess -6 mEq/L (-2 to 3); ABG HCO3 20 mEq/L (21-27); ABG Oxygen Saturation 98 % (95-98); ABG PCO2 40 mmHg (35-45); ABG PH 7.31 pH Units (7.32-7.45); ABG PO2 107 mmHg (85-104); ABG TCO2 22 mEq/L (20-26); Blood Gas Modality PRVC; Blood Gas PEEP 5 cm H2O; Blood Gas Respiration Rate 14; Blood Gas VT 500 cc
[2017-06-15] MEDS ORDERED: Lacri-Lube 3.5 GM TUBE BOTH EYES PRN (10:37)
[2017-06-15] MEDS ORDERED: *HR* Midazolam HCl 5 MG/5 ML VIAL IVP ONE (10:57)
[2017-06-15] MEDS: Abiraterone Acetate [Zytiga] 1,000 MG PO SCH (11:46)
[2017-06-15] MEDS: Dexmedetomidine HCl 400 MCG/100 ML MLS IVC SCH ×2 (11:53→21:17)
[2017-06-15] MEDS: Lacri-Lube 3.5 GM TUBE BOTH EYES SCH ×4 (11:53→23:17)
[2017-06-15] MEDS ORDERED: MethylPREDNISolone 40 MG/ML VIAL IVP SCH (12:00)
[2017-06-15] MEDS ORDERED: 0.9 % Sodium Chloride 250 ML ONE (16:01)
[2017-06-15] MEDS: Pantoprazole 40 MG VIAL IVP SCH (16:37)
[2017-06-15] MEDS: FentaNYL (PF) 1,000 MCG in 0.9 % Sodium Chloride 80 ML IVC SCH ×2 (19:30→21:17)
[2017-06-15] MEDS: Chlorhexidine Rinse 15 ML MOUTHWASH MM SCH (20:05)
[2017-06-15] MEDS: Levofloxacin 500 MG/100 ML 500 MG/100 ML BAG IVPB SCH (20:06)
[2017-06-15 21:12] LABS: Appearance of Body Fluid Slightly Hazy (Clear); Volume of Body Fluid 15 mL
[2017-06-15] MEDS ORDERED: Vancomycin 1,000 MG in D5% in Water 250 ML IVPB SCH (23:00)
[2017-06-16] MEDS ORDERED: 0.9 % Sodium Chloride 1,000 ML ONE ×2 (00:13→02:42)
[2017-06-16] MEDS ORDERED: 0.9 % Sodium Chloride 500 ML IVC ONE ×2 (00:16→03:00)
[2017-06-16] MEDS ORDERED: 0.9 % Sodium Chloride 1,000 ML IVC ONE (02:30)
[2017-06-16 02:51] LABS: Red Blood Count 2.31 M/mcL (4.19-5.50)
[2017-06-16 02:53] LABS: Hematocrit 24.2 % (37.5-50.1); Hemoglobin 7.7 g/dL (12.9-16.9); Immature Platelets 7.5 % (1.1-6.1); Mean Corpuscular HGB Conc 31.8 g/dL (31.6-35.5); Mean Corpuscular Hemoglobin 33.3 pg (28.0-33.3); Mean Corpuscular Volume 104.8 fL (83.0-100.0); Mean Platelet Volume 10.4 fL (9.4-12.4); Red Cell Distribution Width 15.6 % (11.5-14.5)
[2017-06-16 02:56] LABS: Platelet Count 53 K/mcL (140-400)
[2017-06-16 03:05] LABS: BUN/Creatinine Ratio 38 (6-26); Blood Urea Nitrogen 36 mg/dL (8-26); Calcium 6.6 mg/dL (8.6-10.8); Carbon Dioxide 19 mEq/L (19-29); Chloride 113 mEq/L (98-109); Glucose 124 mg/dL (70-99); Magnesium 2.1 mg/dL (1.6-2.6); Osmolality,Calculated 298 (280-300); Phosphorous 1.5 mg/dL (2.3-4.7); Potassium 4.1 mEq/L (3.5-4.5); Sodium 139 mEq/L (136-145); eGFR For African Americans > 60 (> 60); eGFR For Non-African Americans > 60 (> 60)
[2017-06-16 03:07] LABS: VBG HCO3 21 mEq/L (21-27); VBG PCO2 46 mmHg (41-51); VBG PH 7.26 pH Units (7.32-7.42); VBG PO2 69 mmHg (25-50)
[2017-06-16] MEDS: Ipratropium/Albuterol Neb 3 ML IH SCH ×3 (03:32→11:50)
[2017-06-16 03:40] LABS: Eosinophils # 0.2 K/mcL (0.0-0.6); Lymphocytes # 1.1 K/mcL (0.6-4.6); Monocytes # 0.9 K/mcL (0.0-1.3); Neutrophils # 8.6 K/mcL (1.6-8.9)
[2017-06-16 03:41] LABS: Reactive Lymphocytes Present (Not Present)
[2017-06-16 03:43] LABS: Platelet Estimate Decreased (Normal); Polychromasia 1+ (Not Present)
[2017-06-16 03:46] LABS: Anisocytosis 1+ (Not Present)
[2017-06-16] MEDS: Lacri-Lube 3.5 GM TUBE BOTH EYES SCH ×2 (04:12→08:34)
[2017-06-16 04:43] LABS: ABG Base Excess -6 mEq/L (-2 to 3); ABG HCO3 20 mEq/L (21-27); ABG Oxygen Saturation 81 % (95-98); ABG PCO2 38 mmHg (35-45); ABG PH 7.32 pH Units (7.32-7.45); ABG PO2 49 mmHg (85-104); ABG TCO2 21 mEq/L (20-26); Blood Gas Modality VC; Blood Gas PEEP 8 cm H2O; Blood Gas Respiration Rate 14; Blood Gas VT 500 cc
[2017-06-16] MEDS: Dexmedetomidine HCl 400 MCG/100 ML MLS IVC SCH (04:59)
[2017-06-16] MEDS ORDERED: Norepinephrine 4 MG in D5% in Water 250 ML IVC SCH (05:00)
[2017-06-16] MEDS: Cefepime HCl 2,000 MG in Water for inj. (sterile) 20 ML IVP SCH (05:15)
[2017-06-16] MEDS: Pantoprazole 40 MG VIAL IVP SCH (05:16)
[2017-06-16] MEDS ORDERED: Albumin Human 5% 25.0 GM/500 ML VIAL ONE (06:00)
--- NOTE | 2017-06-16 06:39 | Procedure Note ---
Date of procedure: 06/16/17 Pre-op diagnosis: Septic shock Post-op diagnosis: same Procedure: Ultrasound-guided right femoral central venous catheter - successfully placed. Procedure performed in a sterile manner. No complications. Minimal blood loss. Anesthesia: local, IV sedation Surgeon: Garcia Santiago Estimated blood loss (cc): 5 Pathology: none sent Condition: critical Disposition: ICU
[2017-06-16] MEDS ORDERED: Vecuronium 50 MG in 0.9 % Sodium Chloride 200 ML IVC SCH (08:00)
[2017-06-16] MEDS: Chlorhexidine Rinse 15 ML MOUTHWASH MM SCH (08:33)
[2017-06-16] MEDS: Abiraterone Acetate [Zytiga] 1,000 MG PO SCH (08:35)
[2017-06-16 08:53] LABS: ABG Base Excess -8 mEq/L (-2 to 3); ABG HCO3 18 mEq/L (21-27); ABG Oxygen Saturation 86 % (95-98); ABG PCO2 39 mmHg (35-45); ABG PH 7.28 pH Units (7.32-7.45); ABG PO2 59 mmHg (85-104); ABG TCO2 20 mEq/L (20-26); Blood Gas Modality ASSIST CONTROL; Blood Gas PEEP 12 cm H2O; Blood Gas Respiration Rate 20; Blood Gas VT 450 cc
[2017-06-16] MEDS ORDERED: Levofloxacin 500 MG/100 ML 500 MG/100 ML BAG IVPB SCH (09:00)
[2017-06-16] MEDS ORDERED: *HR* Midazolam HCl 2 MG/2 ML VIAL ONE (09:23)
[2017-06-16] MEDS ORDERED: *HR* Midazolam HCl 2 MG/2 ML VIAL IVP PRN (09:32)
--- NOTE | 2017-06-16 09:42 | Pulmonology Progress Note ---
<LesliepeterLetha ford M - Last Filed: 06/16/17 11:26> Date of Encounter: 06/16/17 Assessment and Plan (1) Acute respiratory failure Current Visit: No Status: Acute Qualifiers: Respiratory failure complication: hypoxia Qualified Code(s): J96.01 - Acute respiratory failure with hypoxia (2) Sepsis Current Visit: Yes Status: Acute Qualifiers: Sepsis type: sepsis due to unspecified organism Qualified Code(s): A41.9 - Sepsis, unspecified organism (3) Pneumonia Current Visit: Yes Status: Acute Qualifiers: Qualified Code(s): J18.9 - Pneumonia, unspecified organism Objective PUL Vital signs: Last Vital Signs Temp 98.1 F 06/16/17 08:00 Pulse 40 06/16/17 10:00 Resp 8 06/16/17 10:00 BP 36/21 06/16/17 10:00 Pulse Ox 75 06/16/17 10:00 Ventilator Settings Ventilator Settings: Ventilator Settings, Last 8 Hours Ventilator Mode A/C Ventilator Mode A/C Ventilator Mode VC+ Ventilator Mode VC+ Ventilator Mode VC+ Ventilator Mode VC+ Ventilator Mode VC+ Ventilator Tidal Volume 450 Setting Ventilator Tidal Volume 450 Setting Ventilator Tidal Volume 500 Setting Ventilator Tidal Volume 500 Setting Ventilator Tidal Volume 500 Setting Ventilator Tidal Volume 500 Setting Ventilator Tidal Volume 500 Setting Ventilator Tidal Volume 500 Setting Ventilator Respiratory Rate 20 Setting Ventilator Respiratory Rate 20 Setting Ventilator Respiratory Rate 14 Setting Ventilator Respiratory Rate 14 Setting Ventilator Respiratory Rate 14 Setting Ventilator Respiratory Rate 14 Setting Ventilator Respiratory Rate 14 Setting Ventilator Respiratory Rate 14 Setting Actual Respiratory Rate 8 Actual Respiratory Rate 20 Actual Respiratory Rate 20 Actual Respiratory Rate 23 Actual Respiratory Rate 19 Actual Respiratory Rate 21 Actual Respiratory Rate 22 Actual Respiratory Rate 22 Actual Respiratory Rate 20 Positive End Expiratory 12 Pressure Positive End Expiratory 12 Pressure Positive End Expiratory 12 Pressure Positive End Expiratory 12 Pressure Positive End Expiratory 10 Pressure Positive End Expiratory 10 Pressure Positive End Expiratory 8 Pressure Positive End Expiratory 8 Pressure Positive End Expiratory 8 Pressure Positive End Expiratory 5 Pressure Peak Inspiratory Airway 29 Pressure Peak Inspiratory Airway 19 Pressure Peak Inspiratory Airway 14 Pressure Peak Inspiratory Airway 19 Pressure Peak Inspiratory Airway 14 Pressure Peak Inspiratory Airway 16 Pressure Peak Inspiratory Airway 33 Pressure Results - Laboratory Findings CBC and BMP: 06/16/17 09:50 06/16/17 09:50 ABG ABG pH 7.28 pH Units (7.32-7.45) L 06/16/17 08:48 ABG pCO2 39 mmHg (35-45) 06/16/17 08:48 ABG pO2 59 mmHg (85-104) L 06/16/17 08:48 ABG O2 Saturation 86 % (95-98) L 06/16/17 08:48 Abnormal lab findings: Abnormal lab results WBC 12.4 K/mcL (4.3-11.1) H 06/16/17 09:50 RBC 2.16 M/mcL (4.19-5.50) L 06/16/17 09:50 Hgb 7.1 g/dL (12.9-16.9) L 06/16/17 09:50 Hct 23.2 % (37.5-50.1) L 06/16/17 09:50 MCV 107.4 fL (83.0-100.0) H 06/16/17 09:50 MCHC 30.6 g/dL (31.6-35.5) L 06/16/17 09:50 RDW 15.8 % (11.5-14.5) H 06/16/17 09:50 Plt Count 27 K/mcL (140-400) L* 06/16/17 09:50 Immature Gran % 6.6 % (0-4) H 06/16/17 09:50 Band Neutrophils % 6.0 % (0-4) H 06/16/17 02:40 Metamyelocytes % 2.0 % (0) H 06/14/17 18:20 Myelocytes % 4.0 % (0) H 06/14/17 18:20 Nucleated RBCs/100 WBC 3.7 /100 WBC (0) H 06/16/17 09:50 Hypersegmented Neuts Present (Not Present) A 06/15/17 00:58 Reactive Lymphocytes Present (Not Present) A 06/16/17 02:40 Platelet Estimate Marked Decrease (Normal) L 06/16/17 09:50 Polychromasia 1+ (Not Present) A 06/16/17 02:40 Hypochromasia Present (Not Present) A 06/15/17 00:58 Anisocytosis 1+ (Not Present) A 06/16/17 02:40 ABG pH 7.28 pH Units (7.32-7.45) L 06/16/17 08:48 ABG pO2 59 mmHg (85-104) L 06/16/17 08:48 ABG HCO3 18 mEq/L (21-27) L 06/16/17 08:48 ABG O2 Saturation 86 % (95-98) L 06/16/17 08:48 ABG Base Excess -8 mEq/L (-2 to 3) L 06/16/17 08:48 VBG pH 7.26 pH Units (7.32-7.42) L 06/16/17 03:02 VBG pO2 69 mmHg (25-50) H 06/16/17 03:02 Chloride 112 mEq/L (98-109) H 06/16/17 09:50 Carbon Dioxide 18 mEq/L (19-29) L 06/16/17 09:50 BUN 36 mg/dL (8-26) H 06/16/17 09:50 BUN/Creatinine Ratio 34 (6-26) H 06/16/17 09:50 Glucose 225 mg/dL (70-99) H 06/16/17 09:50 POC Glucose 116 (58-89) H 06/15/17 23:48 Calculated Osmolality 309 (280-300) H 06/16/17 09:50 Lactic Acid 5.8 mmol/L (0.5-2.2) H* 06/16/17 09:50 Calcium 6.4 mg/dL (8.6-10.8) L 06/16/17 09:50 Troponin I 0.06 ng/mL (0-0.03) H* 06/13/17 22:52 B-Natriuretic Peptide 792 pg/mL (0-100) H 06/15/17 00:58 Serum Total Protein 5.6 g/dL (6.0-8.3) L 06/14/17 03:36 Albumin 2.2 g/dL (3.5-5.0) L 06/14/17 03:36 Albumin/Globulin Ratio 0.6 (1.1-2.2) L 06/14/17 03:36 Fluid Appearance Slightly Hazy (Clear) A 06/15/17 10:38 Vancomycin Trough 23.6 mcg/mL (10-20) H* 06/15/17 00:58 - Microbiology Findings Microbiology Findings: Microbiology, Last 48 Hours 06/15/17 10:38 Gram Stain - Final Right Lower Lobe Lung - Clinical Findings Intake & Output: Intake & Output 06/15/17 06/16/17 06/16/17 23:59 07:59 15:59 Intake Total 462.1 / 462.1 2614.9 / 2614.9 Output Total 100 / 100 350 / 350 Balance 362.1 / 362.1 2264.9 / 2264.9 Weight 80 kg Consult Discharge Plan - Plan Referrals: Salgado,Humberto Downey MD [Non-Partnered Physician] - 06/29/17 2:40 pm - Attending Attestation I examined this patient and my medical decision-making was reviewed with the Resident Physician. I agree with the documented findings, disposition and treatment plan as described except to the extent set forth below. Patient seen and examined. Labs, radiology, chart personally reviewed. 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 Patient was placed on low tidal volume lung protective strategy suspecting ARDS and follow-up ABG was done. Patient also was placed on paralytics mainly for comfort as well as for the vent synchrony. Patient was closely monitored, however from Cardiovascular and point he become unstable and he had cardiac arrest which he was successfully resuscitated. Please refer to the events note. This time patient was on maximum support with vasopressors and the ventilator and his condition was deteriorating. Son arrived and we discussed the CODE STATUS which was appropriate in the changed and to continue medical support. Patient became bradycardic and atropine was given with no significant response. Subsequently patient and discussed with the son at the bedside. Heme: DVT prophylaxis per routine. Thrombocytopenia suspect mainly from septic shock ID: Continue antibiotics and plan to de-escalation Renal; urine out put and renal funtion reviewed. Patient was given sodium bicarbonate for metabolic acidosis and lactic level was increased Endorcine: blood glucose is monitored Lines: all lines checked and no evidence of infections Skin: skin care to prevent pressure ulcers per nursing routine care I spent 90 min of Critical Care time with this patient. It involved decision making of high complexity to assess, manipulate, and support vital organ system failure and/or to prevent further life threatening deterioration of the patient' s condition. The time involved in the performance of separately reportable procedures was not counted toward critical care time. <Jamee Wong - Last Filed: 06/16/17 12:00> Date of Encounter: 06/16/17 Time of Encounter: 09:36 Assessment and Plan (1) Acute respiratory failure Current Visit: No Status: Acute Patient with acute respiratory distress requiring endotracheal intubation yesterday. Patient continued to deteriorate. FiO2 was increased to 100% with gradual increases in PEEP to 12. Patient was placed on low tidal volume lung protective strategy as there was suspiscion for ARDS. FU ABG was performed. Patient was started on vecuronium. Patient went in PEA with two rounds of ACLS and resuscitation. Please refer to note and event note. -Vent settings and vent bundle -Bronchoscopy performed yesterday. Follow-up results when they become available. -Continue antibiotic coverage. -Cefepime day 4. -Vancomycin day 4. -Levaquin day 4 Qualifiers: Respiratory failure complication: hypoxia Qualified Code(s): J96.01 - Acute respiratory failure with hypoxia (2) Sepsis Current Visit: Yes Status: Acute Continue appropriate antibiotics as above. Qualifiers: Sepsis type: sepsis due to unspecified organism Qualified Code(s): A41.9 - Sepsis, unspecified organism (3) Pneumonia Current Visit: Yes Status: Acute Likely source of sepsis and respiratory distress. Chest x-ray unchanged from previous exam showing extensive airspace disease most prominent in the right lung. Patient continuing to desaturate. -Continue broad-spectrum antibiotic coverage with cefepime, and vancomycin. -Follow-up bronchoscopy. (4) Coffee ground emesis Current Visit: Yes Status: Acute Coffee ground emesis seen coming out of the OG tube. -Hold medical DVT prophylaxis. -Protonix IV 40 mg twice a day. -Patient remaining thrombocytopenic at 27, transfuse another unit of platelets. (5) Thrombocytopenia Current Visit: Yes Status: Acute Thrombocytopenia likely from septic shock -Another unit of platelets. -Mechanical DVT prophylaxis. (6) DVT prophylaxis Current Visit: No Status: Acute EPCDs Subjective Principal diagnosis: Acute respiratory failure Interval history: Patient with oxygen desaturation overnight on the vent. Patient also having episodes of decreasing blood pressure. Patient afebrile overnight with borderline tachycardia. Objective PUL Vital signs: Last Vital Signs Temp 98.1 F 06/16/17 08:00 Pulse 101 06/16/17 08:00 Resp 20 06/16/17 09:33 BP 101/77 06/16/17 08:00 Pulse Ox 89 06/16/17 08:00 General appearance: other (Sedated) Eyes: injected ENT: oropharynx dry Effort: other (Mechanical ventilation) Auscultation: bilateral: diminished breath sounds, rales, rhonchi Cardiovascular: other (Tachycardia, paced) Gastrointestinal: normoactive bowel sounds, non-tender Integumentary: other (Pallor) Extremities: no cyanosis, no edema, other unable to assess due to mental status Ventilator Settings Ventilator Settings: Ventilator Settings, Last 8 Hours Ventilator Mode A/C Ventilator Mode A/C Ventilator Mode VC+ Ventilator Mode VC+ Ventilator Mode VC+ Ventilator Mode VC+ Ventilator Mode VC+ Ventilator Tidal Volume 450 Setting Ventilator Tidal Volume 450 Setting Ventilator Tidal Volume 500 Setting Ventilator Tidal Volume 500 Setting Ventilator Tidal Volume 500 Setting Ventilator Tidal Volume 500 Setting Ventilator Tidal Volume 500 Setting Ventilator Tidal Volume 500 Setting Ventilator Respiratory Rate 20 Setting Ventilator Respiratory Rate 20 Setting Ventilator Respiratory Rate 14 Setting Ventilator Respiratory Rate 14 Setting Ventilator Respiratory Rate 14 Setting Ventilator Respiratory Rate 14 Setting Ventilator Respiratory Rate 14 Setting Ventilator Respiratory Rate 14 Setting Actual Respiratory Rate 20 Actual Respiratory Rate 23 Actual Respiratory Rate 19 Actual Respiratory Rate 21 Actual Respiratory Rate 22 Actual Respiratory Rate 22 Actual Respiratory Rate 20 Positive End Expiratory 12 Pressure Positive End Expiratory 12 Pressure Positive End Expiratory 10 Pressure Positive End Expiratory 10 Pressure Positive End Expiratory 8 Pressure Positive End Expiratory 8 Pressure Positive End Expiratory 8 Pressure Positive End Expiratory 5 Pressure Peak Inspiratory Airway 29 Pressure Peak Inspiratory Airway 19 Pressure Peak Inspiratory Airway 14 Pressure Peak Inspiratory Airway 19 Pressure Peak Inspiratory Airway 14 Pressure Peak Inspiratory Airway 16 Pressure Peak Inspiratory Airway 33 Pressure Results - Laboratory Findings CBC and BMP: 06/16/17 09:50 06/16/17 09:50 ABG ABG pH 7.28 pH Units (7.32-7.45) L 06/16/17 08:48 ABG pCO2 39 mmHg (35-45) 06/16/17 08:48 ABG pO2 59 mmHg (85-104) L 06/16/17 08:48 ABG O2 Saturation 86 % (95-98) L 06/16/17 08:48 Abnormal lab findings: Abnormal lab results RBC 2.31 M/mcL (4.19-5.50) L 06/16/17 02:40 Hgb 7.7 g/dL (12.9-16.9) L 06/16/17 02:40 Hct 24.2 % (37.5-50.1) L 06/16/17 02:40 MCV 104.8 fL (83.0-100.0) H 06/16/17 02:40 RDW 15.6 % (11.5-14.5) H 06/16/17 02:40 Plt Count 53 K/mcL (140-400) L 06/16/17 02:40 Band Neutrophils % 6.0 % (0-4) H 06/16/17 02:40 Metamyelocytes % 2.0 % (0) H 06/14/17 18:20 Myelocytes % 4.0 % (0) H 06/14/17 18:20 Nucleated RBCs/100 WBC 2.0 /100 WBC (0) H 06/16/17 02:40 Hypersegmented Neuts Present (Not Present) A 06/15/17 00:58 Reactive Lymphocytes Present (Not Present) A 06/16/17 02:40 Platelet Estimate Decreased (Normal) L 06/16/17 02:40 Immature Plt Fraction 7.5 % (1.1-6.1) H 06/16/17 02:40 Polychromasia 1+ (Not Present) A 06/16/17 02:40 Hypochromasia Present (Not Present) A 06/15/17 00:58 Anisocytosis 1+ (Not Present) A 06/16/17 02:40 ABG pH 7.28 pH Units (7.32-7.45) L 06/16/17 08:48 ABG pO2 59 mmHg (85-104) L 06/16/17 08:48 ABG HCO3 18 mEq/L (21-27) L 06/16/17 08:48 ABG O2 Saturation 86 % (95-98) L 06/16/17 08:48 ABG Base Excess -8 mEq/L (-2 to 3) L 06/16/17 08:48 VBG pH 7.26 pH Units (7.32-7.42) L 06/16/17 03:02 VBG pO2 69 mmHg (25-50) H 06/16/17 03:02 Chloride 113 mEq/L (98-109) H 06/16/17 02:40 BUN 36 mg/dL (8-26) H 06/16/17 02:40 BUN/Creatinine Ratio 38 (6-26) H 06/16/17 02:40 Glucose 124 mg/dL (70-99) H 06/16/17 02:40 POC Glucose 116 (58-89) H 06/15/17 23:48 Lactic Acid 2.5 mmol/L (0.5-2.2) H 06/14/17 18:20 Calcium 6.6 mg/dL (8.6-10.8) L 06/16/17 02:40 Phosphorus 1.5 mg/dL (2.3-4.7) L 06/16/17 02:40 Troponin I 0.06 ng/mL (0-0.03) H* 06/13/17 22:52 B-Natriuretic Peptide 792 pg/mL (0-100) H 06/15/17 00:58 Serum Total Protein 5.6 g/dL (6.0-8.3) L 06/14/17 03:36 Albumin 2.2 g/dL (3.5-5.0) L 06/14/17 03:36 Albumin/Globulin Ratio 0.6 (1.1-2.2) L 06/14/17 03:36 Fluid Appearance Slightly Hazy (Clear) A 06/15/17 10:38 Vancomycin Trough 23.6 mcg/mL (10-20) H* 06/15/17 00:58 - Microbiology Findings Microbiology Findings: Microbiology, Last 48 Hours 06/15/17 10:38 Gram Stain - Final Right Lower Lobe Lung - Clinical Findings Intake & Output: Intake & Output 06/15/17 06/16/17 06/16/17 23:59 07:59 15:59 Intake Total 462.1 / 462.1 2614.9 / 2614.9 Output Total 100 / 100 350 / 350 Balance 362.1 / 362.1 2264.9 / 2264.9 Weight 80 kg - VTE Documentation of Mechanical Device: Intermittent pneumatic compression device
--- NOTE | 2017-06-16 09:58 | Event Note ---
<Letha Leonardo M - Last Filed: 06/16/17 11:32> Date of Encounter: 06/16/17 I examined this patient and my medical decision-making was reviewed with the Resident Physician. I agree with the documented findings, disposition and treatment plan as described except to the extent set forth below. CODE BLUE was managed by me. <Jamee Wong H - Last Filed: 06/16/17 11:45> Date of Encounter: 06/16/17 Time of Encounter: 09:48 Patient became bradycardic which was followed by pulseless electrical activity. I was alerted by nursing staff at 939 and immediately presented to the bedside accompanied by Dr. Leonardo. CPR was initiated per ACLS protocol. 1 mg of epinephrine was given during the first 3 minutes of CPR. Patient received an amp of sodium bicarbonate for treatment of acidosis. A pulse was palpated at the checkpoint. Patient was tachycardic and subsequently given 6 mg of adenosine to assess rhythm. Patient had a paced rhythm. Levophed was running at 30 g and a bolus of IV fluids was given at this time. Blood pressure was achieved at 149/97. At approximately 951, patient became pulseless again. CPR was restarted and another milligram of epinephrine was given. Another amp of bicarbonate was infused. Pulse check, a pulse was palpated. We turned off the vecuronium. Blood pressure was 135/86. At this time, patient's son was at the bedside, and he stated that his father would not wish to continue with CPR. At this point, he was made DNR comfort care arrest. Bicarbonate infusion was started, palliative was consulted, and comfort care measures were began.
[2017-06-16] MEDS ORDERED: Sodium Bicarbonate 150 MEQ in D5% in Water 1,000 ML IVC SCH (10:00)
[2017-06-16] MEDS ORDERED: Sodium Bicarbonate 50 MEQ in 0.45 % Sodium Chloride 1,000 ML IVC SCH (10:00)
[2017-06-16 10:03] LABS: Basophils % 0.2 %
[2017-06-16 10:05] LABS: Eosinophils # 0.5 K/mcL (0.0-0.6); Eosinophils % 3.6 %; Hematocrit 23.2 % (37.5-50.1); Hemoglobin 7.1 g/dL (12.9-16.9); Immature Granulocytes % 6.6 % (0-4); Immature Platelets 5.7 % (1.1-6.1); Lymphocytes # 2.2 K/mcL (0.6-4.6); Lymphocytes % 17.5 %; Mean Corpuscular HGB Conc 30.6 g/dL (31.6-35.5); Mean Corpuscular Hemoglobin 32.9 pg (28.0-33.3); Mean Corpuscular Volume 107.4 fL (83.0-100.0); Mean Platelet Volume 10.3 fL (9.4-12.4); Monocytes # 0.6 K/mcL (0.0-1.3); Monocytes % 4.4 %; Neutrophils # 8.4 K/mcL (1.6-8.9); Nucleated Red Blood Cells 3.7 /100 WBC (0); Red Blood Count 2.16 M/mcL (4.19-5.50); Red Cell Distribution Width 15.8 % (11.5-14.5); Segmented Neutrophils % 67.7 %
[2017-06-16 10:10] LABS: Platelet Count 27 K/mcL (140-400)
[2017-06-16 10:11] LABS: BUN/Creatinine Ratio 34 (6-26); Blood Urea Nitrogen 36 mg/dL (8-26); Calcium 6.4 mg/dL (8.6-10.8); Carbon Dioxide 18 mEq/L (19-29); Chloride 112 mEq/L (98-109); Glucose 225 mg/dL (70-99); Magnesium 2.4 mg/dL (1.6-2.6); Osmolality,Calculated 309 (280-300); Phosphorous 2.6 mg/dL (2.3-4.7); Potassium 4.4 mEq/L (3.5-4.5); Sodium 142 mEq/L (136-145); eGFR For African Americans > 60 (> 60); eGFR For Non-African Americans > 60 (> 60)
[2017-06-16] MEDS ORDERED: *HR* Atropine Sulfate 1 MG/10 ML SYRINGE ONE (10:15)
[2017-06-16 10:28] LABS: Platelet Estimate Marked Decrease (Normal)
[2017-06-16] MEDS ORDERED: Aminoglycoside Consult 1 EACH MC ONE (10:48)
--- NOTE | 2017-06-16 11:09 | Death Note ---
<Jamee Wong H - Last Filed: 06/16/17 11:32> Discharge Sum: Summary - Date and Time Date of admission: 06/13/17 14:26 Date of : 06/16/17 Time of : 10:49 - Summary Details: Mr. Torres is a 76-year-old male who presented to [facility] emergency department on 06/13/2013 and was found to be hypoxic in respiratory distress with hospital acquired pneumonia as well as an acute exacerbation of COPD and elevated troponins. Patient had been recently discharged from [facility] after receiving treatment for pneumonia that had failed outpatient therapy. He had been treated with IV antibiotics in the hospital, then discharged home with a steroid taper, breathing treatments, and oxygen therapy. Patient started feeling worse 2 days prior to this admission with increased shortness of breath on exertion. He was found to be septic with an elevated lactic acid, tachycardia, and source of infection as pneumonia upon re-admission on 06/13. The patient was started on broad-spectrum antibiotic coverage with cefepime, Levaquin, and vancomycin. Patient was started on high-dose IV steroids, DuoNeb , and oxygen for acute and chronic respiratory failure with hypoxia and acute exacerbation of COPD. Patient was currently being treated for prostate cancer as an outpatient. Patient's elevated troponin was thought to be due to demand ischemia. Patient also had a past medical history of diastolic heart failure, therefore he was given gentle hydration. Pulmonology was consulted as patient appeared to be in significant respiratory distress on 5 L oxygen by nasal cannula as he was only satting SPO2 of 77%. Patient was started on BiPAP and transferred to [facility]. As patient began to deteriorate clinically despite high- dose IV steroids and broad-spectrum antibiotic coverage, conversations were initiated with the patient and the patient's son. They both requested full code , however, if his condition deteriorated on a ventilator after intubation, the patient wished to be comfort care. Patient continued to demonstrate increased work of breathing, increase oxygen demand and worsening acute respiratory distress, therefore the patient was transferred to pulmonary critical care/ICU. Upon transfer to the ICU, the patient was endotracheally intubated. Placement of an OG tube revealed coffee ground emesis. Patient was thrombocytopenic. He was transfused with platelets and started on twice a day Protonix. Bronchoscopy was performed yesterday. Lactic acid continued to trend upwardly. Patient continued to decompensate clinically despite mechanical ventilation. He became acidotic this morning. At approximately 9: 39 AM, we were alerted to the bedside by nursing staff for a CODE BLUE. CPR and ACLS protocol was initiated for 2 rounds. The patient received a total of 2 mg of epinephrine, 2 A of sodium bicarbonate, and 6 mg of adenosine. A bolus of fluids was given and levophed was running at 30 g. A pulse returned twice. After the second ROSC, a conversation was held with the patient's son who requested for his CODE STATUS to be changed to DNR A. At that time, we started a sodium bicarbonate infusion. Patient's heart rate slowly and progressively continued to decline. Palliative was consulted. The patient was made DNR- comfort care. With patient's son at the bedside, he at 10:49 peacefully. No heart tones were auscultated by stethoscope and pupils were fixed and dilated. - Additional Data Confirmation of as documented by pronouncing clinician: no pulse, no heart sounds, pupils fixed and dilated Family: at bedside Additional persons at bedside: janice Attending/PCP notified?: Yes Attending physician: Letha Leonardo MD Was code activated?: Yes (Prior to passing. 2 rounds of CPR/ACLS were performed prior to DNR-A code ) Discharge Sum: Diag - PCOD Probable Cause of : Cardiorespiratory arrest Discharge Sum: Prov - Provider Primary care physician: Jessica Carpenter CNP Admitting clinician: Gonzalo Nash Attending physician on admission: Gonzalo Nash Consults: 06/14/17 15:24 Consult to Pulmonology [CONS] Routine Consulting Provider: Pulm Crit Care & [facility] Reason for Consult: Respiratory failure Call Completed: Yes 06/15/17 14:35 Consult to Invasive Line Access Team [CONS] Routine Reason for Consult: Limited access Line Type: EPIV Call Completed: Yes 06/16/17 09:58 Consult to Palliative Care [CONS] Routine Comment: Consulting Provider: Palliative Care [facility] Reason for Consult: Cardiac arrest x2. Code status now DNR-CCA. Appreciate palliative care on board. Call Completed: No Pronouncing clinician: Jamee Wong <Letha Leonardo - Last Filed: 06/16/17 11:44> Discharge Sum: Summary - Date and Time Date of admission: 06/13/17 14:26 - Additional Data Attending physician: Gonzalo Nash MD Discharge Sum: Prov - Provider Primary care physician: Jessica Carpenter CNP Consults: 06/14/17 15:24 Consult to Pulmonology [CONS] Routine Consulting Provider: Pulm Crit Care & [facility] Reason for Consult: Respiratory failure Call Completed: Yes 06/15/17 14:35 Consult to Invasive Line Access Team [CONS] Routine Reason for Consult: Limited access Line Type: EPIV Call Completed: Yes 06/16/17 09:58 Consult to Palliative Care [CONS] Routine Comment: Consulting Provider: Palliative Care [facility] Reason for Consult: Cardiac arrest x2. Code status now DNR-CCA. Appreciate palliative care on board. Call Completed: No - Attending Attestation I examined this patient and my medical decision-making was reviewed with the Resident Physician. I agree with the documented findings, disposition and treatment plan as described except to the extent set forth below. Please refer to progress note. Discussed with the son at the bedside.
[2017-06-16 11:13] VITALS: BP 0/0
--- NOTE | 2017-06-16 12:59 | Event Note ---
Date of Encounter: 06/16/17 Time of Encounter: 09:55 Patient became bradycardic which was followed by pulseless electrical activity. CPR was initiated per ACLS protocol. 1 mg of epinephrine was given during the first 3 minutes of CPR. Patient received an amp of sodium bicarbonate for treatment of acidosis. A pulse was palpated at the checkpoint. Patient was tachycardic and subsequently given 6 mg of adenosine to assess rhythm. Patient had a paced rhythm. Levophed was running at 30 g and a bolus of IV fluids was given at this time. Blood pressure was achieved at 149/97. At approximately 951, patient became pulseless again. CPR was restarted and another milligram of epinephrine was given. Another amp of bicarbonate was infused. Pulse check , a pulse was palpated. We turned off the vecuronium. Blood pressure was 135/ 86. At this time, patient's son was brought to bedside. Dr. Leonardo discussed goals of care with son. Son desired to have comfort care initiated. I provided support and explained POC. Fentanyl gtt started at 25 mcg for comfort. Chaplain Knapp also at bedside. Patient at 1045.
[2017-06-16 15:07] LABS: Mycoplasma pneumoniae IgG 0.3 U/L (<=0.09)
--- NOTE | 2017-06-18 13:58 | Electrocardiograph Report ---
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
== END 2017-06-16 10:49 | disposition expired | DRG 853 ==
LOC: EMEROO 11:59 → 2NENU 11:59 → SUATTDRO 14:26 → 2NENU 15:43 → 2NNU 06-14 17:02 → ICNU 06-15 09:28
PROVIDERS: ADMIT Family Medicine; ATTEND Family Medicine